=== PATIENT | male | born 1955 | race Caucasian/White ===

== ENCOUNTER 2017-08-27 16:43 | Inpatient (IN) | payer OTHER ==
[~2017-08-27] VITALS: Ht 175.3 cm; Wt 78.9 kg
[~2017-08-27 16:43] MED LIST: KEFLEX500 MG PO; NORCO 325 MG-51 TAB PO
[2017-08-27 20:02] LABS: ABSOLUTE BASOPHIL COUNT 0 /CUMM (0.0-0.2); ABSOLUTE EOSINOPHIL COUNT 0 /CUMM (0.0-0.7); ABSOLUTE GRANULOCYTE CT 16.7 /CUMM (1.4-6.5); ABSOLUTE LYMPH COUNT 0.8 /CUMM (1.2-3.4); BASOPHIL % 0.1 % (0.0-2.0); EOSINOPHIL % 0.1 % (0-5); GRANULOCYTE % 90.2 % (42.2-75.2); HEMATOCRIT 45.5 % (42-52); MEAN CORPUSCULAR HGB 30.3 PG (27.0-31.0); MEAN CORPUSCULAR HGB CONC 33.6 G/DL (33.0-37.0); MEAN CORPUSCULAR VOLUME 90.4 FL (80.0-94.0); MEAN PLATELET VOLUME 8.1 FL (7.4-10.4); PLATELET COUNT 306 /CUMM (130-400); RBC DISTRIBUTION WIDTH 12.8 % (11.5-14.5); RED BLOOD CELL CT 5.04 /CUMM (4.70-6.10)
[2017-08-27 20:11] LABS: PT 11.4 SEC (9.4-12.5); PTT 27 SEC (25-37)
--- NOTE | 2017-08-27 20:33 | ED GI/GU/ABDOMINAL COMPLAINT ---
History of Present Illness General Chief Complaint: Abdominal Pain/Flank Pain Stated Complaint: ABDOMINAL PAIN, "I TRY TO THROW UP AND I PASS OUT" Source: patient, family, old records Exam Limitations: no limitations Vital Signs & Intake/Output Vital Signs & Intake/Output Vital Signs Date Time Temp Pulse Resp B/P B/P Pulse O2 O2 Flow FiO2 Mean Ox Delivery Rate 08/31 1440 98.1 77 19 125/80 95 08/31 0800 Room Air 08/31 0744 100.5 100 20 136/74 90 08/30 2204 99.8 100 20 140/70 91 08/30 2200 99.8 100 20 140/70 08/30 2000 99.8 100 20 140/70 ED Intake and Output 08/31 0000 08/30 1200 Intake Total 1160 960 Output Total 450 Balance 1160 510 Intake, IV 600 Intake, Oral 1160 360 Output, Urine 450 Patient 78.925 kg Weight Allergies Coded Allergies: NO KNOWN ALLERGIES (02/10/12) Reconcile Medications Alprazolam 0.5 MG TABLET 1 TAB PO DAILY NEEDED ANXIETY (Reported) Amlodipine Besylate 5 MG TABLET 1 TAB PO DAILY HIGH BLOOD PRESSURE (Reported) Aspirin (Aspirin*) 81 MG TAB.CHEW 1 TAB PO DAILY HEART HEALTH (Reported) Atorvastatin Calcium 10 MG TABLET 1 TAB PO DAILY HIGH CHOLESTROL (Reported) Probenecid 500 MG TABLET GOUT (Reported) Venlafaxine HCl (Venlafaxine HCl ER) 75 MG CAP.ER.24H 1 CAP PO DAILY DEPRESSION (Reported) Zolpidem Tartrate 10 MG TABLET 1 TAB PO QPMP SLEEPINESS (Reported) Triage Note: 61 YEAR OLD MALE TO TRIAGE WITH HIS , PT STTAES THAT HE HAS BEEN HAVING DIFFUSE ABD PAIN THAT RADIATES UP INTO HIS MID CHEST FOR THE PAST 2 DAYS, EATING OK, LBN YESTERDAY. PT COMPLAINS OF NAUSEA BUT STTAES THAT HE CAN'T VOMIT, AND THAT WHEN THE PAIN GETS TO 10/10 HE FEELS LIKE HE IS GOING TO PASS OUT. Triage Nurses Notes Reviewed? yes HPI: 61M PMH HTN, HLD, depression, history of pancreatitis presenting with 2 days of worsening diffuse abdominal pain, abdominal fullness, nausea. Recently returned from an 8 day vacation to the [facility] [place] where he indulged in food and alcohol. He has been unable to eat for the past 2 days due to pain and nausea. He denies fever, chills, headache, sore throat, chest pain, cough, diarrhea, dysuria. Had an episode earlier today where he felt severe abdominal pain and rolled on the ground in the bathroom, did not strike head or lose consciousness, got up after a few minutes and recalled the entire event. Past History Travel History Traveled to [place] past 21 day No Medical History Any Pertinent Medical History? 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 No Review of Systems Review of Systems Constitutional: Reports: no symptoms. EENTM: Reports: no symptoms. Respiratory: Reports: no symptoms. Cardiovascular: Reports: no symptoms. GI: Reports: see HPI. Genitourinary: Reports: no symptoms. Musculoskeletal: Reports: no symptoms. Skin: Reports: no symptoms. Neurological/Psychological: Reports: no symptoms. Hematologic/Endocrine: Reports: no symptoms. Immunologic/Allergic: Reports: no symptoms. All Other Systems: Reviewed and Negative Physical Exam Physical Exam General Appearance: well developed/nourished, no apparent distress Head: atraumatic, normal appearance Eyes: Bilateral: normal appearance, normal inspection. Ears, Nose, Throat, Mouth: hearing grossly normal, MM dry Neck: normal inspection, supple, full range of motion Respiratory: normal breath sounds, chest non-tender, no respiratory distress Cardiovascular: regular rate/rhythm Gastrointestinal: diffusely firm, bloated, tender Back: normal inspection, normal range of motion Extremities: normal range of motion Neurologic/Psych: awake, alert, oriented x 3, normal mood/affect Skin: intact, normal color, warm/dry Core Measures ACS in differential dx? No Sepsis Present: No Sepsis Focused Exam Completed? No Progress Differential Diagnosis: AAA, AMI, appendicitis, biliary colic, bowel obstruction , colon cancer, cholecystitis, diverticulitis, epididymitis, esophageal varices, gastritis, hepatitis, hernia, hemorrhoids, ischemic bowel, inflamm bowel dis, Ellie-Hugo tear, orchitis, pancreatitis, prostatitis, peptic ulcer, PUD/GERD, perforated viscous, pyelonephritis, SBO, STD, testicular torsion, ureterolithiasis, urinary retention, urethritis, UTI/pyelo Plan of Care: Orders Procedure Date/time Status MAGNESIUM 09/01 599 Active CBC WITHOUT DIFFERENTIAL 09/01 599 Active BASIC ELECTROLYTES PLUS BUN&CR 09/01 599 Active CBC WITHOUT DIFFERENTIAL 08/31 599 Complete BASIC ELECTROLYTES PLUS BUN&CR 08/31 599 Complete VIRAL CULTURE 08/30 1415 Active OXYGEN SETUP CHG 08/30 UNK Complete INCENTIVE SPIROMETRY TRX CHG 08/30 UNK Complete OXYGEN 08/30 UNK Complete OXYGEN TRANSPORT 08/30 UNK Complete THERAPIST ORDERS 08/30 UNK Complete MISSING MEDICATION FORM 08/30 UNK Active Current Medications Sig/Javad Start time Last Medication Dose Stop Time Status Admin Polyethylene Glycol 17 GM DAILY 08/29 1000 AC 08/29 (Miralax) 1132 Trimethobenzamide HCl 200 MG 4 TIMES/DAY PRN 08/28 2345 AC 08/31 (Tigan) 0539 Albuterol Sulfate 2 PUF Q4-PRN PRN 08/28 2300 AC 08/29 (Ventolin) 0838 Senna 187 MG AT BEDTIME 08/28 2200 AC 08/29 (Senokot) 2036 Zolpidem Tartrate 10 MG 2200 08/28 2200 AC 08/30 (Ambien) 2131 Albuterol Sulfate 3 ML Q6 PRN 08/28 2115 AC (Proventil) Atorvastatin Calcium 10 MG 1700 08/28 1700 AC 08/30 (Lipitor) 1849 Amlodipine Besylate 5 MG DAILY 08/28 1000 AC 08/31 (Norvasc) 0925 Aspirin 81 MG DAILY 08/28 1000 AC 08/31 (Aspirin) 0925 Enoxaparin Sodium 40 MG DAILY 08/28 1000 AC 08/31 (Lovenox) 0926 Folic Acid 1 MG DAILY 08/28 1000 AC 08/31 (Folic Acid) 0925 Lorazepam 1 MG BID 08/28 1000 AC 08/31 (Ativan) 0925 Morphine Sulfate 2 MG Q4 HRS NEEDED PRN 08/28 1000 AC 08/31 (Morphine) 1046 Probenecid 500 MG DAILY 08/28 1000 AC 08/31 (Benemid) 09 Thiamine HCl 100 MG DAILY 08/28 1000 AC 08/31 (Vitamin B1) 09 Venlafaxine HCl 75 MG DAILY 08/28 1000 AC 08/31 (Effexor Xr) 09 Acetaminophen 500 MG Q6-PRN PRN 08/28 0015 AC 08/31 (Tylenol) 09 Oxycodone/ 1 TAB Q4P PRN 08/28 0015 AC 08/30 Acetaminophen 1911 (Percocet) Diphenhydramine HCl 25 MG Q6P PRN 08/27 2345 AC 08/31 (Benadryl) 1050 Laboratory Tests 08/31/17 0800: Anion Gap 10, Estimated GFR > 60, BUN/Creatinine Ratio 7.8, CBC w Diff NO MAN DIFF REQ, RBC 3.33 L, MCV 89.8, MCH 30.2, MCHC 33.7, RDW 12.5, MPV 8.3, Gran % 78.4 H, Lymphocytes % 6.0 L, Monocytes % 15.0 H, Eosinophils % 0.3, Basophils % 0.3, Absolute Granulocytes 3.7, Absolute Lymphocytes 0.3 L, Absolute Monocytes 0.7 H, Absolute Eosinophils 0, Absolute Basophils 0 Initial ED EKG: none Departure Departure Disposition: HOME OR SELF CARE Condition: Stable Clinical Impression Primary Impression: Acute pancreatitis Referrals: Danica SILVA,Silvio Whitten (PCP/Family) Departure Forms: Customer Survey General Discharge Information Admission Note Spoke With: Ashwini Salazar MD Documentation of Exam: Documentation of any treatments & extenuating circumstances including Concerns Regarding Discharge (functional status, medication knowledge or non-compliance, living conditions, etc.) that warrant an admission rather than observation: acute pancreatitis, WBC 18, unable to tolerate PO, will admit to general medicine for IV hydration, IV morphine, possible abdominal ultrasound
[2017-08-27 20:35] LABS: WHITE BLOOD CELL COUNT 18.5 /CUMM (4.8-10.8)
--- NOTE | 2017-08-27 22:20 | History & Physical ---
General Information and HPI Allergies/Medications Allergies: Coded Allergies: NO KNOWN ALLERGIES (02/10/12) Home Med list Alprazolam 0.5 MG TABLET 1 TAB PO DAILY NEEDED ANXIETY (Reported) Amlodipine Besylate 5 MG TABLET 1 TAB PO DAILY HIGH BLOOD PRESSURE (Reported) Aspirin (Aspirin*) 81 MG TAB.CHEW 1 TAB PO DAILY HEART HEALTH (Reported) Atorvastatin Calcium 10 MG TABLET 1 TAB PO DAILY HIGH CHOLESTROL (Reported) Probenecid 500 MG TABLET GOUT (Reported) Venlafaxine HCl (Venlafaxine HCl ER) 75 MG CAP.ER.24H 1 CAP PO DAILY DEPRESSION (Reported) Zolpidem Tartrate 10 MG TABLET 1 TAB PO QPMP SLEEPINESS (Reported) Past History Travel History Traveled to [place] past 21 day No Medical History Neurological: NONE EENT: NONE Cardiovascular: hypertension Respiratory: NONE Gastrointestinal: PANCREATITIS Hepatic: NONE Renal: NONE Musculoskeletal: R HIP REPLACEMENT Psychiatric: NONE Endocrine: GOUT Blood Disorders: NONE Cancer(s): 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
--- NOTE | 2017-08-27 23:43 | History & Physical ---
Mack SILVA,[facility] 08/27/17 2342: General Information and HPI MD Statement: I have seen and personally examined JIMY SALAZAR and documented this H&P. The patient is a 61 year old M who presented with a patient stated chief complaint of [Severe abdominal pain]. Source of Information: patient, family Exam Limitations: no limitations History of Present Illness: Mr. Salazar is 61 year old male with PMH of gout, hypertension, hyperlipidemia, anxiety, alcoholism, previous history of 2 pancreatitis attacks last one was 2012 who presented today with history of severe abdominal pain. 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 Patient tried to tolerate the pain but early yesterday morning he had pain so severe that caused him presyncopal attack, he felt dizzy and disoriented fell on the ground but didn't hit his head, denied loss of consciousness, convulsion, stool or urine incontinence. Patient denied diarrhea and in fact has constipation had one bowel movement this morning of hard stool small amount. No history of sick contact or anybody at home has similar symptoms. Patient denied eating street food or drinking tap water or eating fruits and vegetables washed with tap water. He reported drinking up to 10 glasses of whiskey daily for the last 8 days, his baseline drinking habits is 4-5 glasses per day. Denied any history of alcohol related seizure or withdrawal symptoms. He doesn't smoke or illicit drugs. No history of recent falls, confusion, memory related problems. Allergies/Medications Allergies: Coded Allergies: NO KNOWN ALLERGIES (02/10/12) Home Med list Alprazolam 0.5 MG TABLET 1 TAB PO DAILY NEEDED ANXIETY (Reported) Amlodipine Besylate 5 MG TABLET 1 TAB PO DAILY HIGH BLOOD PRESSURE (Reported) Aspirin (Aspirin*) 81 MG TAB.CHEW 1 TAB PO DAILY HEART HEALTH (Reported) Atorvastatin Calcium 10 MG TABLET 1 TAB PO DAILY HIGH CHOLESTROL (Reported) Probenecid 500 MG TABLET GOUT (Reported) Venlafaxine HCl (Venlafaxine HCl ER) 75 MG CAP.ER.24H 1 CAP PO DAILY DEPRESSION (Reported) Zolpidem Tartrate 10 MG TABLET 1 TAB PO QPMP SLEEPINESS (Reported) Past History Travel History Traveled to [place] past 21 day No Medical History Neurological: NONE EENT: NONE Cardiovascular: hypertension Respiratory: NONE Gastrointestinal: PANCREATITIS Hepatic: NONE Renal: NONE Musculoskeletal: R HIP REPLACEMENT Psychiatric: NONE Endocrine: GOUT Blood Disorders: NONE Cancer(s): 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 EENTM: Denies: blurred vision, nasal congestion. Cardiovascular: Denies: chest pain, palpitations. Respiratory: Denies: cough, short of breath. GI: Reports: abdominal pain, nausea. Denies: diarrhea, bloody stool, vomiting. Genitourinary: Reports: frequency. Denies: dysuria. Exam & Diagnostic Data Last 24 Hrs of Vital Signs/I&O Vital Signs Date Time Temp Pulse Resp B/P B/P Pulse O2 O2 Flow FiO2 Mean Ox Delivery Rate 08/28 0108 97.8 88 20 130/72 94 Room Air / 2352 98.7 90 20 134/83 95 Room Air / 2247 99.4 80 18 131/77 98 Room Air / 2138 99.2 87 20 147/74 98 Room Air / 1930 97.9 106 18 149/94 97 Room Air 08/27 1649 99.3 112 18 142/86 96 Room Air Intake & Output 08/28 0800 08/28 0000 08/27 1600 Intake Total Output Total Balance Patient 79.379 kg Weight Physical Exam General Appearance Alert, Oriented X3, Cooperative, No Acute Distress Skin No Rashes, No Breakdown, No Significant Lesion Skin Temp/Moisture Exam: Warm/Dry HEENT Atraumatic, PERRLA, EOMI, Mucous Membr. moist/pink, no parotid tenderness Neck Supple Lymphatic no cervical lymphadenopathy Cardiovascular Regular Rate, Normal S1, Normal S2, No Murmurs Lungs Clear to Auscultation, Normal Air Movement Abdomen Normal Bowel Sounds, Soft, diffuse tenderness to mild palpation Neurological Normal Speech, Strength at 5/5 X4 Ext, Normal Tone, Sensation Intact, Cranial Nerves 3-12 NL, Reflexes 2+ Extremities No Clubbing, No Cyanosis, No Edema, Normal Pulses, No Tenderness/ Swelling Last 24 Hrs of Labs/Goran: Laboratory Tests 08/27/17 2232: Lactic Acid Cancelled 08/27/17 1935: Anion Gap 15, Estimated GFR > 60, BUN/Creatinine Ratio 13.3, Glucose 116 H, Lactic Acid 1.4, Calcium 9.1, Phosphorus 3.2, Magnesium 1.8, Total Bilirubin 1.2 , AST 47, ALT 43, Alkaline Phosphatase 81, Troponin I < 0.01, Total Protein 7.3, Albumin 4.6, Globulin 2.7, Albumin/Globulin Ratio 1.7, Lipase 7026 H, PT 11.4, INR 1.09, APTT 27, CBC w Diff NO MAN DIFF REQ, RBC 5.04, MCV 90.4, MCH 30.3, MCHC 33.6, RDW 12.8, MPV 8.1, Gran % 90.2 H, Lymphocytes % 4.4 L, Monocytes % 5.2, Eosinophils % 0.1, Basophils % 0.1, Absolute Granulocytes 16.7 H, Absolute Lymphocytes 0.8 L, Absolute Monocytes 1.0 H, Absolute Eosinophils 0, Absolute Basophils 0 Assessment/Plan Assessment: Mr. Salazar is 61 year old male with PMH of gout, hypertension, hyperlipidemia, anxiety, alcoholism, previous history of 2 pancreatitis attacks last one was 2012 who presented today with history of severe abdominal pain. Problem list #Acute pancreatitis #Alcoholism #Hypertension and hyperlipidemia #Anxiety Plan -Admit to general medical floor -Vitals every shift -Lactated Ringer's running at 100 mL per hour -Nothing by mouth -Pain medication acetaminophen, Percocet and morphine 2 mg every 6 when necessary -Benadryl for itching a side effect of morphine 25 mg IV every 6 when necessary -Tigan for nausea -Urine toxicology and drugs -Limited abdominal ultrasound to rule out gallstone -Lipid panel -We'll obtain magnesium and phosphorus -CIWA score -Ativan 1 mg twice a day -Thiamine and Folic acid -We'll continue home medication atorvastatin, amlodipine, zolpidem, Effexor, aspirin -Senna for constipation -Consider obtaining CT abdomen if the pain didn't improve within 48 hours -DVT prophylaxis Lovenox -Code full -Diet nothing by mouth As Ranked By This Provider Problem List: 1. ACUTE PANCREATITIS Core Measures/Misc (04/10) Acute Coronary Syndrome ACS Diagnosis: No Congestive Heart Failure Congestive Heart Failure Diagnosis No Cerebrovascular Accident CVA/TIA Diagnosis: No VTE (View Protocol) VTE Risk Factors Age>40 No Mechanical VTE Prophylaxis d/t N/A MechProphylax Ordered No VTE Pharm Prophylaxis d/t NA PharmProphylax ordered Sepsis (View protocol) Sepsis Present: No Ashwini Salazar 08/28/17 0649: Attending MD Review Statement Attending Statement Attending MD Statement: examined this patient, discuss w/resident/PA/TEXTILE SCREEN PRINTER, agreed w/resident/PA/TEXTILE SCREEN PRINTER, reviewed EMR data (avail), reviewed images, amended to note Attending Assessment/Plan: CC: Acute abdominal pain PMH: HTN, HLD, anxiety, Cardizem, gout, history of pancreatitis Patient came to ER for severe abdominal pain , similar to previous pancreatitis episodes. He recently went to [facility], was mostly on beach and binge drinking every day. He came back 5 days back, started to notice abdominal pain yesterday. Pain was so severe that he felt like he was going to pass out but he did not actually lose consciousness. He endorses nausea and dry heaving but no vomiting. No relieving factors. Vitals: Afebrile, tachycardic, RR 18, blood pressure 142/86, saturating well on room air. On exam: A O 3, cooperative, no acute distress, neck supple, JVD normal, no lymphadenopathy, mucosa moist, no focal neurological deficit, no dependent edema , no obvious skin rashes or inflammation CVS: S1-S2, RRR. RS: Clear to auscultate bilaterally. Abdomen: Soft, epigastric tenderness, no guarding or rigidity, ND, bowel sounds present. Labs: WBC 18.5, neutrophils 90% otherwise CBC unremarkable, sodium 139, potassium 4.0, chloride 97, bicarbonate 28, BUN 12, creatinine 0.9, glucose 116, calcium 9.1, LFT unremarkable, lactate 1.4, troponin less than 0.01, lipase 7026 , INR 1.09 Assessment and plan 54-year-old male with above-mentioned past medical history presented in ER for severe abdominal pain , similar to previous pancreatitis episodes. Patient endorses binge drinking during his recent [facility] visit. Tender on palpation but no guarding or rigidity, no Jo sign, Has significantly elevated lipase. Admitted for pancreatitis. Even though alcoholism is obvious cause of pancreatitis, ruling out gallstone and hypertriglyceridemia. + Acute pancreatitis + Reactive leukocytosis + History of HTN, HLD, anxiety, Cardizem, gout, history of pancreatitis - Admit to general medicine - Continue aggressive hydration with Ringer's lactate - Check right upper quadrant ultrasound, lipid profile - Check magnesium and phosphorus, replace if low, repeat tomorrow - Adequate pain control - Check LFT in a.m. along with other labs - Replete thiamine, folic acid - DVT prophylaxis
[2017-08-28] MEDS ORDERED: ZOLPIDEM TARTRA10 M1 PO (00:28)
[2017-08-28] MEDS ORDERED: AMLODIPINE BESYL5 M1 PO (00:28)
[2017-08-28] MEDS ORDERED: ATORVASTATIN CA10 M1 PO (00:28)
[2017-08-28] MEDS ORDERED: PROBENECID500 M1 (00:29)
[2017-08-28] MEDS ORDERED: VENLAFAXINE HCL75 M1 PO (00:29)
[2017-08-28] MEDS ORDERED: ALPRAZOLAM0.5 M4 PO (00:53)
[2017-08-28] MEDS ORDERED: ASPIRIN81 M4 PO (00:53)
[2017-08-28 01:08] VITALS: BP 130/72
[2017-08-28 05:00] LABS: ABSOLUTE BASOPHIL COUNT 0 /CUMM (0.0-0.2); ABSOLUTE EOSINOPHIL COUNT 0.1 /CUMM (0.0-0.7); ABSOLUTE GRANULOCYTE CT 10.9 /CUMM (1.4-6.5); ABSOLUTE LYMPH COUNT 1.2 /CUMM (1.2-3.4); ABSOLUTE MONOCYTE COUNT 0.8 /CUMM (0.10-0.60); BASOPHIL % 0.3 % (0.0-2.0); EOSINOPHIL % 1.1 % (0-5); GRANULOCYTE % 83.6 % (42.2-75.2); MEAN CORPUSCULAR HGB 30.7 PG (27.0-31.0); MEAN CORPUSCULAR HGB CONC 33.9 G/DL (33.0-37.0); MEAN CORPUSCULAR VOLUME 90.4 FL (80.0-94.0); MEAN PLATELET VOLUME 7.6 FL (7.4-10.4); PLATELET COUNT 206 /CUMM (130-400); RBC DISTRIBUTION WIDTH 12.6 % (11.5-14.5); RED BLOOD CELL CT 3.88 /CUMM (4.70-6.10); WHITE BLOOD CELL COUNT 13.1 /CUMM (4.8-10.8)
[2017-08-28 05:06] LABS: HEMATOCRIT 35.1 % (42-52)
[2017-08-28 06:00] VITALS: BP 120/70
--- NOTE | 2017-08-28 06:50 | Admission Certification ---
Admission Certification Certification Statement - As attending physician, I certify that at the time of - admission, based on clinical presentation, severity of - symptoms, need for further diagnostic testing and - therapeutic interventions, and risk of adverse outcomes - without in-hospital treatment, in my clinical assessment, - this patient requires an acute hospital stay for a minimum - of two nights or longer. I have also considered psychsocial - factors such as support system, advanced age, financial - issues, cognitive issues, and failed out-patient treatments, - past re-admission history, safety of patient, and lack of - compliance as applicable. Specific rationale supporting this admission is: Acute pancreatitis
[2017-08-28 07:04] VITALS: BP 120/70
--- NOTE | 2017-08-28 09:34 | PN- Housestaff ---
Debbie Felix 08/28/1733: Subjective Follow-up For: pancreatitis Subjective: was seen and examined today. He was admiited overnight for pancreatitis. Currently, patient reports severe epigastric pain and mild nausea. Does not feel safe to eat pain is responding to morphine but after one or two pain comes back. no N/V/D No chest pain or SOB Last night was tacjhycardic and tachypnic today: VSS Npo; on RL drip Review of Systems Constitutional: Reports: see HPI. Objective Last 24 Hrs of Vital Signs/I&O Vital Signs Date Time Temp Pulse Resp B/P B/P Pulse O2 O2 Flow FiO2 Mean Ox Delivery Rate 08/28 0752 98.7 90 20 120/70 02/ 0704 98.7 90 20 120/70 92 / 0600 98.7 90 20 120/70 / 0108 97.8 88 20 130/72 94 Room Air / 0108 97.8 88 20 130/72 94 Room Air / 2352 98.7 90 20 134/83 95 Room Air / 2247 99.4 80 18 131/77 98 Room Air 02/ 2138 99.2 87 20 147/74 98 Room Air / 1930 97.9 106 18 149/94 97 Room Air / 1649 99.3 112 18 142/86 96 Room Air Intake & Output 08/28 1600 / 0800 08/28 0000 Intake Total 700 Output Total 250 Balance 450 Intake, IV 600 Intake, Oral 100 Number 0 Bowel Movements Output, Urine 250 Patient 175 lb 175 lb Weight Weight Reported by Patient Measurement Method Physical Exam General Appearance: Alert, Oriented X3, Mild Distress Lungs: Clear to Auscultation Abdomen: volunteery gaurding, epigastric tenderness, no RT, decreased BS Extremities: No Edema Current Medications: Current Medications Sig/Javad Start time Last Medication Dose Route Stop Time Status Admin Acetaminophen 500 MG Q6-PRN PRN 08/28 0015 AC PO Amlodipine Besylate 5 MG DAILY 08/28 1000 AC PO Aspirin 81 MG DAILY 08/28 1000 AC PO Atorvastatin Calcium 10 MG 1700 08/28 1700 AC PO Dextrose/Sodium 1,000 ML .Q10H 08/27 2345 DC 08/28 Chloride IV 08/28 0944 0009 Diphenhydramine HCl 50 MG .ST-MED ONE 08/28 0331 DC IM 08/28 0332 Diphenhydramine HCl 25 MG Q6P PRN 08/27 2345 AC 08/28 IV 0330 Diphenhydramine HCl 0 .STK-MED ONE 08/27 2139 DC .ROUTE Diphenhydramine HCl 12.5 MG ONCE ONE 08/27 2130 DC 08/27 IV 08/27 2130 214 Enoxaparin Sodium 40 MG DAILY 08/28 1000 AC 08/28 SC 0752 Folic Acid 1 MG DAILY 08/28 1000 AC PO Ketorolac 0 .STK-MED ONE 08/27 2119 DC Tromethamine .ROUTE Ketorolac 30 MG ONCE ONE 08/27 2114 DC 08/27 Tromethamine IV 08/27 Lactated Ringer's 1,000 ML Q10H 08/28 0330 AC IV Lactated Ringer's 500 ML .Q5H 08/28 0215 DC IV Lorazepam 1 MG BID 08/28 1000 AC PO Magnesium Sulfate 1 GM Q2H 08/28 0715 DC 08/28 Dextrose/Water 100 ML IV 08/28 1114 0906 Morphine Sulfate 2 MG Q4 HRS NEEDED PRN 08/28 1000 AC IV Morphine Sulfate 2 MG Q6-PRN PRN 08/27 2345 DC 08/28 IV 0330 Morphine Sulfate 0 .STK-MED ONE 08/27 2140 DC .ROUTE Morphine Sulfate 4 MG ONCE ONE 08/27 2129 DC 08/27 IV 08/271 2200 Ondansetron HCl 4 MG ONCE ONE 08/27 2114 DC 08/27 IV 08/27 Ondansetron HCl 0 .STK-MED ONE 08/27 2114 DC .ROUTE Oxycodone/ 0 .STK-MED ONE 08/28 0020 DC Acetaminophen PO Oxycodone/ 1 TAB Q4P PRN 08/28 0015 AC 08/28 Acetaminophen PO 1004 Potassium Chloride 40 MEQ ONCE ONE 08/28 0745 CAN PO 08/28 0746 Potassium Chloride 10 MEQ Q1H 08/28 0715 DC 08/28 IV 08/28 0816 1045 Potassium Phosphate 15 mMol ONE ONE 08/28 0715 DC 08/28 Sodium Chloride 250 ML IV 08/28 1119 0847 Probenecid 500 MG DAILY 08/28 1000 AC PO Senna 187 MG AT BEDTIME 08/28 2199 AC PO Sodium Chloride 1,000 ML BOLUS ONE 08/27 2114 DC 08/27 IV 08/27 2214 2120 Thiamine HCl 100 MG DAILY 08/28 1000 AC PO Trimethobenzamide HCl 200 MG 4 TIMES/DAY PRN 08/28 2345 AC IM Venlafaxine HCl 75 MG DAILY 08/28 1000 AC PO Zolpidem Tartrate 10 MG 2200 08/28 220 AC 08/28 PO 0130 Last 24 Hrs of Lab/Goran Results Last 24 Hrs of Labs/Mics: Laboratory Tests 08/28/17 0800: Urine Opiates Screen > 4000.00 H, Methadone Screen 55, Barbiturate Screen < 60, Ur Phencyclidine Scrn < 6.00, Amphetamines Screen < 100, U Benzodiazepines Scrn > 800 H, Urine Cocaine Screen < 50, Urine Cannabis Screen < 5.00 08/28/17 0600: Phosphorus Cancelled, Magnesium Cancelled, Triglycerides Cancelled, Cholesterol Cancelled, LDL Cholesterol, Calc Cancelled, HDL Cholesterol Cancelled, Cholesterol/HDL Ratio Cancelled 08/28/17 0450: Anion Gap 10, Estimated GFR > 60, BUN/Creatinine Ratio 13.3, Calcium 7.7 L, Phosphorus 2.7, Magnesium 1.7, Lactate Dehydrogenase 466, C-Reactive Prot, Quant > 9.0 H, Triglycerides 46, Cholesterol 136, LDL Cholesterol, Calc 63 L, HDL Cholesterol 64 H, Cholesterol/HDL Ratio 2, CBC w Diff NO MAN DIFF REQ, RBC 3.88 L, MCV 90.4, MCH 30.7, MCHC 33.9, RDW 12.6, MPV 7.6, Gran % 83.6 H, Lymphocytes % 9.2 L, Monocytes % 5.8, Eosinophils % 1.1, Basophils % 0.3, Absolute Granulocytes 10.9 H, Absolute Lymphocytes 1.2, Absolute Monocytes 0.8 H, Absolute Eosinophils 0.1, Absolute Basophils 0 08/27/172231: Lactic Acid Cancelled 08/27/175: Anion Gap 15, Estimated GFR > 60, BUN/Creatinine Ratio 13.3, Glucose 116 H, Lactic Acid 1.4, Calcium 9.1, Phosphorus 3.2, Magnesium 1.8, Total Bilirubin 1.2 , AST 47, ALT 43, Alkaline Phosphatase 81, Troponin I < 0.01, Total Protein 7.3, Albumin 4.6, Globulin 2.7, Albumin/Globulin Ratio 1.7, Lipase 7026 H, PT 11.4, INR 1.09, APTT 27, CBC w Diff NO MAN DIFF REQ, RBC 5.04, MCV 90.4, MCH 30.3, MCHC 33.6, RDW 12.8, MPV 8.1, Gran % 90.2 H, Lymphocytes % 4.4 L, Monocytes % 5.2, Eosinophils % 0.1, Basophils % 0.1, Absolute Granulocytes 16.7 H, Absolute Lymphocytes 0.8 L, Absolute Monocytes 1.0 H, Absolute Eosinophils 0, Absolute Basophils 0 Assessment/Plan Assessment: 61 years old man with Hx of alcohol abuse and recurrent ( x3 episode for the past 1 year) was admitted for mild-moderate pancreatitis. Labs persistent; leukocytosis imporved from 45 k to 35 k dropping Ca to 7 from 9 and elevated CRP : soapification and marker of intense inflammation, respectively. BISAP 3 List of DDx: pssoble alcoholic pancreatitis Vs type I AI pancreatitis Plan Keep npo Continue IV hydration with RL LDH, CRP, CXR, are pending for prognostication purposes IgG4 was ordered Change miorphine frequency to Q4 as needed GI consult Problem List: 1. ACUTE PANCREATITIS Pain Ratin Pain Location: epigastric Pain Goal: Pain 4 or less Pain Plan: morphin and oxycodone Tomorrow's Labs & Rationales: cbc bep Liz SILVA,Mariella 08/28/17 1353: Attending MD Review Statement Attending Statement Attending MD Statement: examined this patient, discuss w/resident/PA/CONTRACTING MANAGER, agreed w/resident/PA/CONTRACTING MANAGER, reviewed EMR data (avail), discussed with nursing, amended to note Attending Assessment/Plan: Patient seen and examined. Resting comfortably not in acute distress. Complains of some abdominal discomfort. Denies nausea. Denies vomiting. Denies difficulty breathing. He is afebrile hemodynamically stable. On examination lungs are clear to auscultation bilaterally. Abdomen is soft tenderness. There is no rebound. With diffuse there is no guarding. Recommendations: -Continue IV hydration. -Advance to clear liquid diet as tolerated. -Elective evaluation by the GI service for his recurrent pancreatitis. -Continue current pain management regimen.
--- NOTE | 2017-08-28 10:55 | RADIOLOGY REPORT ---
EXAMINATION: CR PORTABLE CHEST CLINICAL INFORMATION: Pancreatitis. COMPARISON: Chest x-ray dated 08/11/2012. TECHNIQUE: Portable AP semierect view of the chest was obtained. FINDINGS: The cardiac silhouette is within normal limits in size. There is ectasia and tortuosity of the aorta and great vessels again seen, unchanged. Low lung volumes are again noted without focal pulmonary process. No focal consolidation, effusion or pneumothorax is seen. Minimal convex right thoracolumbar curvature is seen, possibly positional. No suspicious bone findings. IMPRESSION: 1. Low lung volumes. 2. No focal pulmonary process. 3. No change in ectasia and tortuosity of the aorta and great vessels.
--- NOTE | 2017-08-28 11:00 | ULTRASOUND REPORT ---
EXAMINATION: US ABDOMEN LIMITED CLINICAL INFORMATION: Pancreatitis. Rule out gallbladder stone. COMPARISON: Ultrasound of the abdomen dated 08/10/2012. CT scan of the abdomen and pelvis dated 08/10/2012. TECHNIQUE: Real-time imaging of the right upper quadrant abdominal viscera. FINDINGS: Evaluation is limited due to difficulties with patient positioning and respiratory suspension and bowel gas. PANCREAS: The pancreas is largely obscured by overlying bowel gas. LIVER: Liver is poorly visualized, but is grossly unremarkable. The liver demonstrates normal size, contour and echogenicity. No focal lesion or intrahepatic biliary duct dilatation. GALLBLADDER: Normal. The gallbladder is physiologically distended without evidence of stones, sludge, polyps, wall thickening or pericholecystic fluid. COMMON BILE DUCT: Normal in caliber measuring 0.4 cm in diameter. RIGHT KIDNEY: Normal. No hydronephrosis. No renal calculi or focal parenchymal lesions. The kidney measures 10.1 cm in maximum dimension. FREE FLUID: None. IMPRESSION: 1. Pancreas obscured by bowel and bowel gas. 2. Liver poorly visualized, but grossly unremarkable. 3. No gallstones or other abnormality of the gallbladder appreciated. 4. No biliary dilatation.
[2017-08-28 14:44] VITALS: BP 128/74
[2017-08-28 22:31] VITALS: BP 128/70
[2017-08-29 02:30] VITALS: BP 154/82
[2017-08-29 07:03] VITALS: BP 138/78
--- NOTE | 2017-08-29 07:24 | PN- Housestaff ---
JorgeHouston 08/29/17 0724: Subjective Follow-up For: Alcoholic pancreatitis Subjective: Patient developed fever last night. Max temperature was 11.1. Blood cultures were obtained. Patient was sent for CT scan abdomen and pelvis to find the focus of infection. Patient is seen and examined this morning. He reported abdominal pain 7/10 without nausea and vomiting. His pain is under control with pain medications. He is tolerating clear liquid diet. Review of Systems Constitutional: Reports: no symptoms. EENTM: Reports: no symptoms. Cardiovascular: Reports: no symptoms. Respiratory: Reports: no symptoms. Gastrointestinal: Reports: abdominal pain. Genitourinary: Reports: no symptoms. Musculoskeletal: Reports: no symptoms. Neurological/Psychological: Reports: no symptoms. Objective Last 24 Hrs of Vital Signs/I&O Vital Signs Date Time Temp Pulse Resp B/P B/P Pulse O2 O2 Flow FiO2 Mean Ox Delivery Rate 08/29 0830 138/78 / 0805 99.0 / 0804 99.0 08/29 0730 100.8 08/29 0703 101.8 112 20 138/78 92 Room Air / 0701 101.8 / 0230 101.1 106 20 154/82 91 Room Air / 2305 Room Air / 2231 99.6 98 20 128/70 93 Room Air 02/ 1508 100.5 02/04 1444 100.5 84 20 128/74 94 Room Air Intake & Output / 1600 /05 0800 02/ 0000 Intake Total 900 1600 Output Total 150 Balance 750 1600 Intake, IV 800 800 Intake, Oral 100 800 Output, Urine 150 Physical Exam General Appearance: Alert, Oriented X3, Cooperative Skin Temp/Moisture Exam: Warm/Dry Sepsis Skin Exam (color): Normal for Ethnicity HEENT: Atraumatic, PERRLA, EOMI Neck: Supple Cardiovascular: Normal S1, Normal S2 Lungs: Clear to Auscultation Abdomen: Soft Neurological: Normal Speech, Normal Tone, Sensation Intact Extremities: No Edema Assessment/Plan Assessment: 61 YO M with PMH of gout, hypertension, hyperlipidemia, anxiety, alcoholism, previous history of 2 pancreatitis attacks last one was 2012 who presented with history of severe abdominal pain. We'll admit the patient on general medicine floor to treat for acute pancreatitis. Alcoholic pancreatitis: -Patient is tolerating clear liquids -Continue IV hydration with RL at the rate of 100 mL hourly. -His CT scan is showing left pleural effusion and mild ascites due to pancreatitis. -We will follow IgG4 results -Change morphine frequency to Q4 as needed -Continue antiemetic medication as needed. -We will follow GI recommendations. Alcohol detox: -Patient have a history of alcohol abuse. -We will continue lorazepam 1 mg twice a day. -We will continue thiamine supplement. History of hypertension hyperlipidemia: -We will continue amlodipine and atorvastatin. -We'll continue aspirin History of depression/anxiety: -Continue venlafaxine. DVT Prophylaxis: Mechanical and Lovenox CODE STATUS: Full code Problem List: 1. ACUTE PANCREATITIS Pain Ratin Pain Location: ABDOMEN Pain Goal: Pain 4 or less Pain Plan: PAIN PATHWAY Tomorrow's Labs & Rationales: CBC/BEP Carol Ivan MD 08/29/17 1331: Attending MD Review Statement Attending Statement Attending MD Statement: examined this patient, discuss w/resident/PA/DESKTOP ANALYST, agreed w/resident/PA/DESKTOP ANALYST, reviewed EMR data (avail) Attending Assessment/Plan: 61M PMH HTN, HLD, depression, history of pancreatitis presenting with 2 days of worsening diffuse abdominal pain, abdominal fullness, nausea. Recently returned from an 8 day vacation to the [place] where he indulged in food and alcohol. He has been unable to eat for the past 2 days due to pain and nausea. He denies fever, chills, headache, sore throat, chest pain, cough, diarrhea, dysuria. Today has continued abdominal pain and fullness, but he is tolerating clear liquid diet well. CT abdomen shows small left pleural effusion, significant intra-peritoneal fluid consistent with severe pancreatitis without necrosis. Plan - Continue on general medicine - IV hydration - Continue current pain regimen - Clear liquid diet, do not advance - Continue essential home medications - DVT PPx
--- NOTE | 2017-08-29 07:47 | Cons- Gastroenterology ---
General Information and HPI Consulting Request Date of Consult: 08/29/17 Requested By: Ashwini Salazar MD Reason for Consult: Etoh pancreatitis, abdominal pain. Source of Information: patient Exam Limitations: no limitations History of Present Illness: Mr. Silvestre is a 61 year old male with a history of HTN and pancretatitis who presented to on 08/27/17 with reports of worsening abdominal pain over the previous few days. He notes that he recently came back from the [place] on a vacation where he reports drinking heavily for the prior week. He states that he does drink regularly, but usually not that heavily. He also reports an episode of pancreatitis a few years ago in 2013 which also occured after a vacation. He reports having mid-epigastric abdominal pain that radiates around to his back, but not necessarily through to the back. He notes the pain is similar in quality to the pain he had in 2013. He has had some nausea, but no significant vomiting and he also denies significant burning epigastric discomfort, heartburn or dysphagia. He has been without any noticable jaundice, christie colored stool or dark urine. On admission his lipase was noted to be over 7000 and he was admitted with a diagnosis of pancreatitis and kept NPO and aggressively hydrated with lactated ringers solution. He has had an US that was negative for gallstones and a TG level checked was within normal limits. His pain has improved since admission and he is now able to tolerate liquids. He has been hemodynamically stable sind admission but has been spiking temperatures to around 101/102F. Allergies/Medications Allergies: Coded Allergies: NO KNOWN ALLERGIES (02/10/12) Home Med List: Alprazolam 0.5 MG TABLET 1 TAB PO DAILY NEEDED ANXIETY (Reported) Amlodipine Besylate 5 MG TABLET 1 TAB PO DAILY HIGH BLOOD PRESSURE (Reported) Aspirin (Aspirin*) 81 MG TAB.CHEW 1 TAB PO DAILY HEART HEALTH (Reported) Atorvastatin Calcium 10 MG TABLET 1 TAB PO DAILY HIGH CHOLESTROL (Reported) Probenecid 500 MG TABLET GOUT (Reported) Venlafaxine HCl (Venlafaxine HCl ER) 75 MG CAP.ER.24H 1 CAP PO DAILY DEPRESSION (Reported) Zolpidem Tartrate 10 MG TABLET 1 TAB PO QPMP SLEEPINESS (Reported) Current Medications: Current Medications Sig/Javad Start time Last Medication Dose Route Stop Time Status Admin Acetaminophen 1,000 MG ONCE ONE 08/29 0700 DC 02 IV 08/29 0701 0701 Acetaminophen 500 MG Q6-PRN PRN 08/28 0015 AC 08/28 PO 1508 Albuterol Sulfate 2 PUF Q4-PRN PRN 08/28 2300 AC INH Albuterol Sulfate 3 ML Q6 PRN 08/28 2115 AC INH Amlodipine Besylate 5 MG DAILY 08/28 1000 AC PO Aspirin 81 MG DAILY 04 1000 AC PO Atorvastatin Calcium 10 MG 1700 04 1700 AC 02 PO 1644 Dextrose/Sodium 1,000 ML .Q10H 08/27 2345 DC 08/28 Chloride IV 08/28 0944 0009 Diphenhydramine HCl 50 MG .STK-MED ONE 08/28 1742 DC IM 08/28 1743 Diphenhydramine HCl 50 MG .STK-MED ONE 08/28 1205 DC IM 08/28 1206 Diphenhydramine HCl 25 MG Q6P PRN 08/27 2345 AC 08/29 IV 0038 Enoxaparin Sodium 40 MG DAILY 08/28 1000 AC 08/28 SC 0752 Folic Acid 1 MG DAILY 08/28 1000 AC PO Lactated Ringer's 1,000 ML Q10H 08/28 0330 AC 08/29 IV 0039 Lorazepam 1 MG BID 08/28 1000 AC 08/28 PO 2035 Magnesium Sulfate 1 GM Q2H 08/28 0715 DC 08/28 Dextrose/Water 100 ML IV 08/28 1114 1159 Morphine Sulfate 2 MG Q4 HRS NEEDED PRN 08/28 1000 AC 08/29 IV 0723 Morphine Sulfate 2 MG Q6-PRN PRN 08/27 2345 DC 08/28 IV 0330 Oxycodone/ 1 TAB Q4P PRN 08/28 0015 AC 08/29 Acetaminophen PO 0039 Potassium Chloride 40 MEQ ONCE ONE 08/28 0745 CAN PO 08/28 0746 Potassium Chloride 10 MEQ Q1H 08/28 0715 DC 08/28 IV 08/28 0816 1045 Potassium Phosphate 15 mMol ONE ONE 08/28 0715 DC 08/28 Sodium Chloride 250 ML IV 08/28 1119 0847 Probenecid 500 MG DAILY 08/28 1000 AC PO Senna 187 MG AT BEDTIME 08/28 2200 AC 08/28 PO 2035 Thiamine HCl 100 MG DAILY 02/04 1000 AC PO Trimethobenzamide HCl 200 MG 4 TIMES/DAY PRN 08/28 2345 AC IM Venlafaxine HCl 75 MG DAILY 08/28 1000 AC PO Zolpidem Tartrate 10 MG 2200 08/28 2200 AC 08/28 PO 2229 Past History Travel History Traveled to [place] past 21 day No Medical History Blood Transfusion Hx: Yes Neurological: NONE EENT: hearing loss Cardiovascular: hypertension Respiratory: NONE Gastrointestinal: PANCREATITIS Hepatic: NONE Renal: NONE Musculoskeletal: fracture, R HIP REPLACEMENT Psychiatric: anxiety Endocrine: GOUT Blood Disorders: NONE Cancer(s): NONE 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 Home Services at Home: None Smoking Status: Never Smoked ETOH Use: denies use Illicit Drug Use: denies illicit drug use Review of Systems Review of Systems Constitutional: Denies: no symptoms. EENTM: Denies: no symptoms. Cardiovascular: Denies: no symptoms. Respiratory: Denies: no symptoms. GI: Reports: see HPI. Genitourinary: Denies: no symptoms. Musculoskeletal: Denies: no symptoms. Skin: Denies: no symptoms. Neurological/Psychological: Denies: no symptoms. Hematologic/Endocrine: Denies: no symptoms. Immunologic/Allergic: Denies: no symptoms. All Other Systems: Reviewed and Negative Exam & Diagnostic Data Vital Signs and I&O Vital Signs Date Time Temp Pulse Resp B/P B/P Pulse O2 O2 Flow FiO2 Mean Ox Delivery Rate 08/29 0730 100.8 08/29 0703 101.8 112 20 138/78 92 Room Air 08/29 0701 101.8 08/29 0230 101.1 106 20 154/82 91 Room Air 08/28 2305 Room Air 08/28 2231 99.6 98 20 128/70 93 Room Air 08/28 1508 100.5 / 1444 100.5 84 20 128/74 94 Room Air 08/28 0752 98.7 90 20 120/70 Intake & Output 08/29 1600 08/29 0400 08/28 1600 08/28 0400 08/27 1600 08/27 0400 Intake Total 1600 1450 Output Total 550 Balance 1600 900 Intake, IV 800 1350 Intake, Oral 800 100 Number 0 Bowel Movements Output, Urine 550 Patient 175 lb Weight Weight Reported by Patient Measurement Method Physical Exam General Appearance: well developed/nourished, no apparent distress, alert, awake , anxious, comfortable Head: atraumatic, normal appearance Eyes: Bilateral: normal appearance. Ears, Nose, Throat: normal pharynx, normal ENT inspection, hearing grossly normal Neck: normal inspection, supple, full range of motion Respiratory: normal breath sounds, chest non-tender, no respiratory distress Cardiovascular: regular rate/rhythm Gastrointestinal: normal bowel sounds, soft, distention, tenderness Rectal: deferred Back: normal inspection, normal range of motion Extremities: normal inspection, no edema Neurologic/Psych: no motor/sensory deficits, awake, alert, oriented x 3 Results Pertinent Lab Results: Laboratory Tests 08/28 08/28 0800 0600 Chemistry Phosphorus Cancelled Magnesium Cancelled Triglycerides Cancelled Cholesterol Cancelled LDL Cholesterol, Calc Cancelled HDL Cholesterol Cancelled Cholesterol/HDL Ratio Cancelled Toxicology Urine Opiates Screen (>2000 NG/ML) > 4000.00 H Methadone Screen (>300 NG/ML) 55 Barbiturate Screen (>200 NG/ML) < 60 Ur Phencyclidine Scrn (>25 NG/ML) < 6.00 Amphetamines Screen (>1000 NG/ML) < 100 U Benzodiazepines Scrn (>200 NG/ML) > 800 H Urine Cocaine Screen (>300 NG/ML) < 50 Urine Cannabis Screen (>50 NG/ML) < 5.00 08/28 08/27 0450 2232 Chemistry Sodium (137 - 145 mmol/L) 139 Potassium (3.5 - 5.1 mmol/L) 3.3 L Chloride (98 - 107 mmol/L) 102 Carbon Dioxide (22 - 30 mmol/L) 27 Anion Gap (5 - 16) 10 BUN (9 - 20 mg/dL) 12 Creatinine (0.7 - 1.2 mg/dL) 0.9 Estimated GFR (>60 ml/min) > 60 BUN/Creatinine Ratio (7 - 25 %) 13.3 Lactic Acid Cancelled Calcium (8.4 - 10.2 mg/dL) 7.7 L Phosphorus (2.5 - 4.5 mg/dL) 2.7 Magnesium (1.6 - 2.3 mg/dL) 1.7 Lactate Dehydrogenase (313 - 618 U/L) 466 C-Reactive Prot, Quant (<1.0 mg/dL) > 9.0 H Triglycerides (<150 mg/dL) 46 Cholesterol (< 200 MG/DL) 136 LDL Cholesterol, Calc (65 - 129 mg/dL) 63 L HDL Cholesterol (40 - 60 mg/dL) 64 H Cholesterol/HDL Ratio (0.00 - 4.88 %) 2 Hematology CBC w Diff NO MAN DIFF REQ WBC (4.8 - 10.8 /CUMM) 13.1 H RBC (4.70 - 6.10 /CUMM) 3.88 L Hgb (14.0 - 18.0 G/DL) 11.9 L Hct (42 - 52 %) 35.1 L MCV (80.0 - 94.0 FL) 90.4 MCH (27.0 - 31.0 PG) 30.7 MCHC (33.0 - 37.0 G/DL) 33.9 RDW (11.5 - 14.5 %) 12.6 Plt Count (130 - 400 /CUMM) 206 MPV (7.4 - 10.4 FL) 7.6 Gran % (42.2 - 75.2 %) 83.6 H Lymphocytes % (20.5 - 51.1 %) 9.2 L Monocytes % (1.7 - 9.3 %) 5.8 Eosinophils % (0 - 5 %) 1.1 Basophils % (0.0 - 2.0 %) 0.3 Absolute Granulocytes (1.4 - 6.5 /CUMM) 10.9 H Absolute Lymphocytes (1.2 - 3.4 /CUMM) 1.2 Absolute Monocytes (0.10 - 0.60 /CUMM) 0.8 H Absolute Eosinophils (0.0 - 0.7 /CUMM) 0.1 Absolute Basophils (0.0 - 0.2 /CUMM) 0 02/03 1935 Chemistry Sodium (137 - 145 mmol/L) 139 Potassium (3.5 - 5.1 mmol/L) 4.0 Chloride (98 - 107 mmol/L) 97 L Carbon Dioxide (22 - 30 mmol/L) 28 Anion Gap (5 - 16) 15 BUN (9 - 20 mg/dL) 12 Creatinine (0.7 - 1.2 mg/dL) 0.9 Estimated GFR (>60 ml/min) > 60 BUN/Creatinine Ratio (7 - 25 %) 13.3 Glucose (65 - 99 mg/dL) 116 H Lactic Acid (0.7 - 2.1 mmol/L) 1.4 Calcium (8.4 - 10.2 mg/dL) 9.1 Phosphorus (2.5 - 4.5 mg/dL) 3.2 Magnesium (1.6 - 2.3 mg/dL) 1.8 Total Bilirubin (0.2 - 1.3 mg/dL) 1.2 AST (17 - 59 U/L) 47 ALT (21 - 72 U/L) 43 Alkaline Phosphatase (< 127 U/L) 81 Troponin I (<0.11 ng/ml) < 0.01 Total Protein (6.3 - 8.2 g/dL) 7.3 Albumin (3.5 - 5.0 g/dL) 4.6 Globulin (1.9 - 4.2 gm/dL) 2.7 Albumin/Globulin Ratio (1.1 - 2.2 %) 1.7 Lipase (23 - 300 U/L) 7026 H Coagulation PT (9.4 - 12.5 SEC) 11.4 INR (0.90 - 1.17) 1.09 APTT (25 - 37 SEC) 27 Hematology CBC w Diff NO MAN DIFF REQ WBC (4.8 - 10.8 /CUMM) 18.5 H RBC (4.70 - 6.10 /CUMM) 5.04 Hgb (14.0 - 18.0 G/DL) 15.3 Hct (42 - 52 %) 45.5 MCV (80.0 - 94.0 FL) 90.4 MCH (27.0 - 31.0 PG) 30.3 MCHC (33.0 - 37.0 G/DL) 33.6 RDW (11.5 - 14.5 %) 12.8 Plt Count (130 - 400 /CUMM) 306 MPV (7.4 - 10.4 FL) 8.1 Gran % (42.2 - 75.2 %) 90.2 H Lymphocytes % (20.5 - 51.1 %) 4.4 L Monocytes % (1.7 - 9.3 %) 5.2 Eosinophils % (0 - 5 %) 0.1 Basophils % (0.0 - 2.0 %) 0.1 Absolute Granulocytes (1.4 - 6.5 /CUMM) 16.7 H Absolute Lymphocytes (1.2 - 3.4 /CUMM) 0.8 L Absolute Monocytes (0.10 - 0.60 /CUMM) 1.0 H Absolute Eosinophils (0.0 - 0.7 /CUMM) 0 Absolute Basophils (0.0 - 0.2 /CUMM) 0 Imaging/Other Studies: SERVICE DATE: 08/28/17- EXAM TYPE: US - US-LIMITED ABDOMEN EXAMINATION: US ABDOMEN LIMITED CLINICAL INFORMATION: Pancreatitis. Rule out gallbladder stone. COMPARISON: Ultrasound of the abdomen dated 08/10/2012. CT scan of the abdomen and pelvis dated 08/10/2012. TECHNIQUE: Real-time imaging of the right upper quadrant abdominal viscera. FINDINGS: Evaluation is limited due to difficulties with patient positioning and respiratory suspension and bowel gas. PANCREAS: The pancreas is largely obscured by overlying bowel gas. LIVER: Liver is poorly visualized, but is grossly unremarkable. The liver demonstrates normal size, contour and echogenicity. No focal lesion or intrahepatic biliary duct dilatation. GALLBLADDER: Normal. The gallbladder is physiologically distended without evidence of stones, sludge, polyps, wall thickening or pericholecystic fluid. COMMON BILE DUCT: Normal in caliber measuring 0.4 cm in diameter. RIGHT KIDNEY: Normal. No hydronephrosis. No renal calculi or focal parenchymal lesions. The kidney measures 10.1 cm in maximum dimension. FREE FLUID: None. IMPRESSION: 1. Pancreas obscured by bowel and bowel gas. 2. Liver poorly visualized, but grossly unremarkable. 3. No gallstones or other abnormality of the gallbladder appreciated. 4. No biliary dilatation. Assessment/Plan Assessment/Recommendations: Assessment: Mr. Silvestre is a 61 year old male admitted with pancreatitis which based on his history, negaitve US and normal TG level is most likely secondary to etoh. That being said, one generally needs to be a 'professional' drinker to develop etoh pancreatitis and at least on his history he doesn't admit to heavy etoh reguarly so he is either not forthcoming with exactly how much he drinks or there is another etiology of his pancreatitis with the former being the more likely scenario. His LFTs are normal and he didn't have any gallstones which argues against a biliary source of his pancreatitis, although a false negative US is possible so it may be reasonable to repeat it in the future. Futher potential etiologies of pancreatitis could be an occult cystic neoplasm, autoimmune or hereditary pancreatitis, medications although he isn't on anything that typically causes pancreatitis and there don't appear to be any recent changes or perhaps he keeps getting bit by scorpions [place] He is clinically improved, but considering he is still having some pain and spiked a temp to 101.8 last night would recommend pursuing further imaging to assess for a fluid collection although it is a bit too early in his course for this to develop and I suspect the fevers are just reactive to his pancreatitis. Recommendations: 1. Check a ct scan of the abdomen with IV contrast and pancreatic mass protocol. 2. Continue with clear liquids for now and maintenance IVF, but as he still has significant pain would not advance beyond clears at this time. 3. Analgesia as needed with IV narcotics if necessary 4. Monitor for signs of etoh withdrawal and consideration should be given for a social service consult for potential etoh abuse if pt is agreeable. 5. Follow up cultures and observe off of antibiotics. I will continue to follow this patient and make further recommendations based on her clinical course and results of the ct scan of his pancreas. Problem List: 1. ACUTE PANCREATITIS Copies To: Danica SILVA,Silvio Consult Acknowledgment - Thank you for your consult request.
--- NOTE | 2017-08-29 09:12 | CT SCAN REPORT ---
EXAMINATION: CT ABDOMEN AND PELVIS WITH CONTRAST CLINICAL INFORMATION: Pancreatitis COMPARISON: CT 08/09/2012. Abdominal ultrasound 08/28/2017 TECHNIQUE: Multidetector volumetric imaging was performed of the abdomen and pelvis following IV administration of 95 mL of Optiray 320 intravenous contrast. Sagittal and coronal reformatted images were obtained on the technologist's workstation. DLP: 433 mGy-cm FINDINGS: LUNG BASES: Small left pleural effusion. Mild atelectasis in the lingula and left lower lobe. Normal heart size. LIVER, GALLBLADDER, AND BILIARY TREE: The liver is normal in size, shape, and attenuation. No focal hepatic lesion or biliary ductal dilatation is present. The gallbladder is unremarkable with no evidence of radiopaque gallstones, gallbladder wall thickening, or obvious pericholecystic inflammatory changes. PANCREAS: The pancreas is edematous. There is fluid adjacent the body and tail of the pancreas extending into the left anterior pararenal space. The pancreas enhances normally. No pancreatic necrosis seen. The pancreatic duct is not dilated. No pancreatic mass. SPLEEN: There is a punctate hyperdensity in the spleen, possibly a tiny granuloma. No focal splenic lesions seen. ADRENAL GLANDS: Unremarkable. KIDNEYS AND URETERS: The kidneys are normal in size, shape, and attenuation. No hydronephrosis, hydroureter, or calculi seen. No perinephric stranding. BLADDER: Unremarkable. GASTROINTESTINAL TRACT: Stomach is collapsed. The small bowel is nondilated. The cecum is redundant and distended with gas. A component of an ileus may be present. No colonic wall thickening or pericolonic inflammatory changes to suggest colitis or diverticulitis. ABDOMINAL WALL: There are foci of gas within the subcutaneous fat of the right lower quadrant presumably from subcutaneous injections. There is diastases of the rectus abdominis but no hernia seen. Tiny fat-containing umbilical hernia. LYMPH NODES: Normal. VASCULAR: Normal caliber abdominal aorta. The portal vein enhances normally. The superior mesenteric vein and splenic vein enhance normally. PELVIC VISCERA: The prostate and seminal vesicles are unremarkable. There is a small volume of free fluid in the pelvis. This measures slightly greater than simple fluid density. OSSEOUS STRUCTURES: Grade 1 anterolisthesis of L5 on S1. Multilevel degenerative changes of the thoracolumbar spine. Chronic bilateral L5 pars defects. IMPRESSION: There are findings of acute interstitial pancreatitis. There is fluid adjacent the body and tail of the pancreas but no well-circumscribed discrete fluid collection. No pancreatic necrosis. There is a small volume of free fluid in the pelvis which measures greater than simple fluid density suggesting it is complicated with proteinaceous material. Normal left pleural effusion. The cecum is redundant and distended with gas, up to 7 cm in diameter. There may be a component of an underlying focal ileus.
[2017-08-29 10:28] LABS: ABSOLUTE BASOPHIL COUNT 0 /CUMM (0.0-0.2); ABSOLUTE EOSINOPHIL COUNT 0.1 /CUMM (0.0-0.7); ABSOLUTE LYMPH COUNT 0.9 /CUMM (1.2-3.4); BASOPHIL % 0 % (0.0-2.0); EOSINOPHIL % 0.8 % (0-5); HEMATOCRIT 33.6 % (42-52); MEAN CORPUSCULAR HGB 30.9 PG (27.0-31.0); MEAN CORPUSCULAR VOLUME 90.9 FL (80.0-94.0); MEAN PLATELET VOLUME 8.6 FL (7.4-10.4); PLATELET COUNT 194 /CUMM (130-400); RBC DISTRIBUTION WIDTH 13.2 % (11.5-14.5); WHITE BLOOD CELL COUNT 11.9 /CUMM (4.8-10.8)
[2017-08-29 11:47] LABS: GRANULOCYTE % 83.8 % (42.2-75.2)
[2017-08-29 12:00] VITALS: BP 130/72
[2017-08-29 15:00] VITALS: BP 144/70
[2017-08-29 22:50] VITALS: BP 160/70
[2017-08-30] VITALS (10 sets, daily range): BP systolic 120–160; BP diastolic 70–80
--- NOTE | 2017-08-30 03:08 | RADIOLOGY REPORT ---
EXAMINATION: XR PORTABLE CHEST CLINICAL INFORMATION: Pancreatitis. COMPARISON: Chest x-ray August 28, 2017 TECHNIQUE: Portable frontal view of the chest was obtained. 2:39 AM FINDINGS: Linear atelectasis left midlung. No infiltrate. No pulmonary vascular congestion or pleural effusion. Cardiac and mediastinal contours are normal. IMPRESSION: Linear atelectasis left midlung. Chest is otherwise unremarkable.
--- NOTE | 2017-08-30 07:26 | PN- Housestaff ---
[facility] 0726: Subjective Follow-up For: Recurrent pancreatitis Subjective: Patient developed fever overnight. MAXIMUM TEMPERATURE 101.7. Patient was also desaturating to 87% last night on room air. Patient was given 1 L oxygen to maintain saturation above 92%. He was also having wheezing. Seen and examined this morning. He denied any chest pain, short of breath, nausea, vomiting, lightheadedness and dysuria. Patient reported having dry cough and abdominal pain 8/10. Patient also reported having abdominal distention although he had bowel movement yesterday. Review of Systems Constitutional: Reports: no symptoms. EENTM: Reports: no symptoms. Cardiovascular: Reports: no symptoms. Respiratory: Reports: cough, wheezing. Gastrointestinal: Reports: abdominal pain. Genitourinary: Reports: no symptoms. Musculoskeletal: Reports: no symptoms. Neurological/Psychological: Reports: no symptoms. Objective Last 24 Hrs of Vital Signs/I&O Vital Signs Date Time Temp Pulse Resp B/P B/P Pulse O2 O2 Flow FiO2 Mean Ox Delivery Rate 08/30 0700 100.3 / 0641 100.3 08/30 0608 101.7 112 24 146/80 96 Nasal 2.0L Cannula / 0600 101.7 112 22 144/80 02/06 0537 101.7 / 0400 99.7 114 22 134/70 02/06 0248 114 93 Nasal 2.0L Cannula / 0200 99.7 123 22 134/70 02/06 0200 99.7 123 22 134/70 90 Room Air 02/06 0043 110 02/06 0000 99.9 120 20 160/70 02/05 2250 99.9 120 20 160/70 95 Room Air 02/05 1500 98.1 109 20 144/70 93 02/05 1200 98.3 89 18 130/72 96 Room Air 02/05 0830 138/78 Intake & Output / 1600 02/06 0800 02/06 0000 Intake Total 960 950 Output Total 450 600 Balance 510 350 Intake, IV 600 Intake, Oral 360 950 Number 1 Bowel Movements Output, Urine 450 600 Physical Exam General Appearance: Alert, Oriented X3, Cooperative Skin Temp/Moisture Exam: Warm/Dry Sepsis Skin Exam (color): Normal for Ethnicity HEENT: Atraumatic, PERRLA, EOMI Neck: Supple Cardiovascular: Normal S1, Normal S2 Lungs: right lung wheezing and left lung decreased breath sounds at base. Abdomen: distended Neurological: Normal Speech, Strength at 5/5 X4 Ext, Normal Tone, Sensation Intact Extremities: No Edema Assessment/Plan Assessment: 61 YO M with PMH of gout, hypertension, hyperlipidemia, anxiety, alcoholism, previous history of 2 pancreatitis attacks last one was 2012 who presented with history of severe abdominal pain. patient is being followed on general medicine floor for treat of acute pancreatitis. Recurrent alcoholic pancreatitis: -Patient is tolerating clear liquids -Continue IV hydration with RL at the rate of 100 mL hourly.stoped last night -We will follow IgG4 results -Change morphine frequency to Q4 as needed -Continue antiemetic medication as needed. -CT scan abdomen with pancreatic mass protocol today. -We will follow GI recommendations. Alcohol detox: -Patient have a history of alcohol abuse. -Continue lorazepam 1 mg twice a day. -Continue thiamine supplement. History of hypertension hyperlipidemia: -Continue amlodipine and atorvastatin. -Continue aspirin History of depression/anxiety: -Continue venlafaxine. DVT Prophylaxis: Mechanical and Lovenox CODE STATUS: Full code Problem List: 1. Acute pancreatitis Pain Ratin Pain Location: abdomen Pain Goal: Pain 4 or less Pain Plan: pain pathway Tomorrow's Labs & Rationales: cbc/bep Carol Ivan MD 08/30/17 1209: Attending MD Review Statement Attending Statement Attending MD Statement: examined this patient, discuss w/resident/PA/FLORIST, agreed w/resident/PA/FLORIST, reviewed EMR data (avail) Attending Assessment/Plan: 61M PMH HTN, HLD, depression, history of pancreatitis presenting with 2 days of worsening diffuse abdominal pain, abdominal fullness, nausea. Recently returned from an 8 day vacation to the [facility] where he indulged in food and alcohol. He has been unable to eat for the past 2 days due to pain and nausea. He denies fever, chills, headache, sore throat, chest pain, cough, diarrhea, dysuria. Today has continued abdominal pain and fullness, but he is tolerating clear liquid diet well. CT abdomen shows small left pleural effusion, significant intra-peritoneal fluid consistent with severe pancreatitis without necrosis. Plan - Continue on general medicine - Repeat CT pancreatic protocol - IV hydration - Follow GI recommendations - Continue current pain regimen - Clear liquid diet, do not advance - Continue essential home medications - DVT PPx
[2017-08-30 08:48] LABS: ABSOLUTE BASOPHIL COUNT 0 /CUMM (0.0-0.2); ABSOLUTE EOSINOPHIL COUNT 0.1 /CUMM (0.0-0.7); ABSOLUTE GRANULOCYTE CT 8.2 /CUMM (1.4-6.5); ABSOLUTE LYMPH COUNT 0.4 /CUMM (1.2-3.4); ABSOLUTE MONOCYTE COUNT 0.7 /CUMM (0.10-0.60); BASOPHIL % 0.1 % (0.0-2.0); EOSINOPHIL % 0.8 % (0-5); HEMATOCRIT 32.3 % (42-52); MEAN CORPUSCULAR HGB 30.9 PG (27.0-31.0); MEAN CORPUSCULAR VOLUME 90.9 FL (80.0-94.0); MEAN PLATELET VOLUME 7.7 FL (7.4-10.4); PLATELET COUNT 223 /CUMM (130-400); RBC DISTRIBUTION WIDTH 12.8 % (11.5-14.5); RED BLOOD CELL CT 3.56 /CUMM (4.70-6.10); WHITE BLOOD CELL COUNT 9.4 /CUMM (4.8-10.8)
[2017-08-30 09:30] LABS: GRANULOCYTE % 86.7 % (42.2-75.2)
--- NOTE | 2017-08-30 13:44 | CT SCAN REPORT ---
EXAMINATION: CT ABDOMEN WITHOUT AND WITH CONTRAST CLINICAL INFORMATION: Pancreatitis. Evaluate for pancreatic tumor. COMPARISON: CT images of the abdomen pelvis from 08/29/2017. TECHNIQUE: Initially, noncontrast images of the abdomen were acquired. Then, arterial and venous phase images of the abdomen were obtained following intravenous administration of 95 mL of Optiray 320 nonionic contrast material. The data set was reformatted in the coronal and sagittal planes and reviewed on an independent workstation. DLP: 565 mGy-cm FINDINGS: LUNG BASES: Persistent trace right pleural effusion and small left pleural effusion, similar compared to 08/29/2017. Mild subsegmental atelectasis within the visualized inferior lingula. No pericardial effusion. LIVER, GALLBLADDER, AND BILIARY TREE: The liver is normal in size, shape, and attenuation. No focal hepatic lesion or biliary ductal dilatation. The gallbladder is unremarkable with no evidence of radiopaque gallstones, gallbladder wall thickening, or pericholecystic inflammatory changes. PANCREAS: Again noted is edema and fat stranding around the body and tail the pancreas consistent with acute interstitial pancreatitis. No evidence of cystic or solid pancreatic lesion or pancreatic ductal dilatation. No evidence of pancreatic necrosis. No interval development of an organized, rim-enhancing fluid collection. Small amount of fluid tracks along the anterior renal fascia toward the pelvis, not significantly changed compared to 08/29/2017. SPLEEN: No acute findings. No evidence of splenic vein thrombosis. ADRENAL GLANDS: Unremarkable. KIDNEYS AND URETERS: Kidneys are normal in size. No nephrolithiasis, hydronephrosis or renal mass. There is edema in the left perinephric space. The ureters are unremarkable. GASTROINTESTINAL TRACT: Again noted is gaseous distention of the cecum. The cecum currently measures 6 cm AP compared to 8 cm AP diameter on 08/29/2017. No pneumoperitoneum. ABDOMINAL WALL: Unremarkable. LYMPH NODES: Normal. VASCULAR: Abdominal aorta is normal in caliber and its major branches are widely patent. There is a left and right-sided inferior vena cava. OSSEOUS STRUCTURES: Again noted is the L5 spondylolysis with grade 1 anterolisthesis of L5 on S1. No suspicious osseous lesions. IMPRESSION: 1. No evidence of pancreatic neoplasm. 2. Acute interstitial pancreatitis associated with peripancreatic fluid that extends along the anterior renal fascia toward the pelvis, unchanged compared to 08/29/2017. 3. Persistent small left pleural effusion and trace right pleural effusion.
--- NOTE | 2017-08-31 07:26 | PN- Housestaff ---
JorgeHighland 08/31/17 0726: Subjective Follow-up For: Recurrent pancreatitis Alcohol abuse Subjective: No overnight events. Patient's max temperature remained 99.8 last night and this morning it's 100.5. Seen and examined this morning. Patient denied any chest pain, short of breath, nausea, vomiting, lightheadedness and dysuria. Patient reported dry cough that comes on exertion. Patient also reported abdominal pain 7/10. He also reported that he is feeling bloated although he had bowel movement last a. Patient flu test is negative. Review of Systems Constitutional: Reports: no symptoms. EENTM: Reports: no symptoms. Cardiovascular: Reports: no symptoms. Respiratory: Reports: cough. Gastrointestinal: Reports: abdominal pain, bloating. Genitourinary: Reports: no symptoms. Musculoskeletal: Reports: no symptoms. Neurological/Psychological: Reports: no symptoms. Objective Last 24 Hrs of Vital Signs/I&O Vital Signs Date Time Temp Pulse Resp B/P B/P Pulse O2 O2 Flow FiO2 Mean Ox Delivery Rate 08/31 0744 100.5 100 20 136/74 90 08/30 2204 99.8 100 20 140/70 91 08/30 2200 99.8 100 20 140/70 / 2000 99.8 100 20 140/70 08/30 1444 99.6 08/30 1425 98.2 88 20 120/76 97 / 1227 101.4 / 1200 101.4 Intake & Output 08/31 1600 08/31 0800 08/31 0000 Intake Total 360 Output Total 400 Balance -400 360 Intake, Oral 360 Output, Urine 400 Physical Exam General Appearance: Alert, Oriented X3, Cooperative Skin Temp/Moisture Exam: Warm/Dry Sepsis Skin Exam (color): Normal for Ethnicity HEENT: Atraumatic, PERRLA, EOMI Neck: Supple Cardiovascular: Normal S1, Normal S2 Lungs: expiratory wheez on left side. Abdomen: distended Neurological: Normal Speech, Strength at 5/5 X4 Ext, Normal Tone, Sensation Intact Extremities: No Edema Assessment/Plan Assessment: 61 YO M with PMH of gout, hypertension, hyperlipidemia, anxiety, alcoholism, previous history of 2 pancreatitis attacks last one was 2012 who presented with history of severe abdominal pain. patient is being followed on general medicine floor for treat of acute pancreatitis. Recurrent alcoholic pancreatitis: -Patient is tolerating clear liquids. -We will follow IgG4 results -Continue morphine frequency to Q4 as needed -Continue antiemetic medication as needed. -CT scan abdomen is negative for pancreatic mass. -We will follow GI recommendations. Alcohol detox: -Patient have a history of alcohol abuse. -Continue lorazepam 1 mg twice a day. -Continue thiamine supplement. History of hypertension hyperlipidemia: -Continue amlodipine and atorvastatin. -Continue aspirin History of depression/anxiety: -Continue venlafaxine. DVT Prophylaxis: Mechanical and Lovenox CODE STATUS: Full code Problem List: 1. Acute pancreatitis 2. Alcohol abuse Pain Ratin Pain Location: abdomen Pain Goal: Remain pain free Pain Plan: pain pathway Tomorrow's Labs & Rationales: cbc/bep Carol Ivan MD 08/31/17 1344: Attending MD Review Statement Attending Statement Attending MD Statement: examined this patient, discuss w/resident/PA/MANAGER CASINO, agreed w/resident/PA/MANAGER CASINO, reviewed EMR data (avail) Attending Assessment/Plan: 61M PMH HTN, HLD, depression, history of pancreatitis presenting with 2 days of worsening diffuse abdominal pain, abdominal fullness, nausea. Recently returned from an 8 day vacation to the [facility] where he indulged in food and alcohol. He has been unable to eat for the past 2 days due to pain and nausea. He denies fever, chills, headache, sore throat, chest pain, cough, diarrhea, dysuria. Today has continued abdominal pain and fullness, but he is tolerating clear liquid diet well. CT abdomen shows small left pleural effusion, significant intra-peritoneal fluid consistent with severe pancreatitis without necrosis. Plan - Continue on general medicine - IV hydration - Follow GI recommendations - Continue current pain regimen - Clear liquid diet, do not advance - Continue essential home medications - DVT PPx - Will advance diet tomorrow if condition improves
[2017-08-31 07:44] VITALS: BP 136/74
[2017-08-31 09:10] LABS: ABSOLUTE BASOPHIL COUNT 0 /CUMM (0.0-0.2); ABSOLUTE EOSINOPHIL COUNT 0 /CUMM (0.0-0.7); ABSOLUTE GRANULOCYTE CT 3.7 /CUMM (1.4-6.5); ABSOLUTE LYMPH COUNT 0.3 /CUMM (1.2-3.4); ABSOLUTE MONOCYTE COUNT 0.7 /CUMM (0.10-0.60); BASOPHIL % 0.3 % (0.0-2.0); EOSINOPHIL % 0.3 % (0-5); GRANULOCYTE % 78.4 % (42.2-75.2); HEMATOCRIT 29.9 % (42-52); MEAN CORPUSCULAR HGB 30.2 PG (27.0-31.0); MEAN CORPUSCULAR HGB CONC 33.7 G/DL (33.0-37.0); MEAN CORPUSCULAR VOLUME 89.8 FL (80.0-94.0); MEAN PLATELET VOLUME 8.3 FL (7.4-10.4); PLATELET COUNT 214 /CUMM (130-400); RBC DISTRIBUTION WIDTH 12.5 % (11.5-14.5); RED BLOOD CELL CT 3.33 /CUMM (4.70-6.10); WHITE BLOOD CELL COUNT 4.8 /CUMM (4.8-10.8)
--- NOTE | 2017-08-31 13:18 | PN- Gastroenterology ---
Assessment/Plan Assessment/Recommendations: Assessment: Mr. Silvestre is a 61 year old male admitted with pancreatitis which based on his history, negaitve US and normal TG level is most likely secondary to etoh. He continues to have some discomfort and low grade fevers, but his fever curve is improving (Tmax only 100.5 over past 24 hours) and his ct scan was negative for necrosis, or any significant fluid collections and I feel the low grade fevers are reactive to the pancreatitis. Recommendations: 1. Advance diet as tolerated. 2. Analgesia as needed with IV narcotics if necessary 3. Monitor for signs of etoh withdrawal and consideration should be given for a social service consult for potential etoh abuse if pt is agreeable. 4. Follow up cultures and observe off of antibiotics. I will continue to follow this patient and make further recommendations based on her clinical course and results of the ct scan of his pancreas. Problem List: 1. Fever 2. ACUTE PANCREATITIS Subjective Subjective: he has been advanced to clears which he is tolearting. Pain is improved, but he is still having low grade temps. No vomiting or diarrhea. Objective Vital Signs and I&Os Vital Signs Date Time Temp Pulse Resp B/P B/P Pulse O2 O2 Flow FiO2 Mean Ox Delivery Rate 08/31 0800 Room Air 08/31 0744 100.5 100 20 136/74 90 08/30 2204 99.8 100 20 140/70 91 08/30 2200 99.8 100 20 140/70 08/30 2000 99.8 100 20 140/70 08/30 1444 99.6 08/30 1425 98.2 88 20 120/76 97 Intake & Output 08/31 0400 08/30 1600 08/30 0400 08/29 040 Intake Total 360 6391 646 2580 1600 Output Total 400 262 187 0921 Balance -045 893 1552 350 -910 1600 Intake, IV 600 800 800 Intake, Oral 360 1160 950 340 800 Number 1 Bowel Movements Output, Urine 400 439 062 5369 Patient 174 lb Weight Physical Exam General Appearance: well developed/nourished, no apparent distress, alert, comfortable Head: atraumatic, normal appearance Ears, Nose, Throat: normal pharynx, normal ENT inspection Neck: normal inspection, supple, full range of motion Respiratory: normal breath sounds, chest non-tender, no respiratory distress Abdomen: normal bowel sounds, soft, tenderness Back: normal inspection, normal range of motion Extremities: normal inspection, no edema Current Medications: Current Medications Sig/Javad Start time Last Medication Dose Route Stop Time Status Admin Acetaminophen 500 MG Q6-PRN PRN 08/28 0015 AC 08/31 PO 0926 Albuterol Sulfate 2 PUF Q4-PRN PRN 08/28 2300 AC 08/29 INH 0838 Albuterol Sulfate 3 ML Q6 PRN 08/28 2115 AC INH Amlodipine Besylate 5 MG DAILY 08/28 1000 AC 08/31 PO 0925 Aspirin 81 MG DAILY 08/28 1000 AC 08/31 PO 0925 Atorvastatin Calcium 10 MG 1700 08/28 1700 AC 08/30 PO 1849 Diphenhydramine HCl 50 MG .STK-MED ONE 08/30 2353 DC IM 08/30 2354 Diphenhydramine HCl 25 MG Q6P PRN 08/27 2345 AC 08/31 IV 1050 Enoxaparin Sodium 40 MG DAILY 08/28 1000 AC 08/31 SC 0926 Folic Acid 1 MG DAILY 08/28 1000 AC 08/31 PO 0925 Lorazepam 1 MG BID 08/28 1000 AC 08/31 PO 0925 Morphine Sulfate 2 MG Q4 HRS NEEDED PRN 08/28 1000 AC 08/31 IV 1046 Oxycodone/ 1 TAB Q4P PRN 08/28 0015 AC 08/30 Acetaminophen PO 1911 Polyethylene Glycol 17 GM DAILY 08/29 1000 AC 08/29 PO 1132 Probenecid 500 MG DAILY 08/28 1000 AC 08/31 PO 0925 Senna 187 MG AT BEDTIME 08/28 2200 AC 08/29 PO 2036 Thiamine HCl 100 MG DAILY 08/28 1000 AC 08/31 PO 0925 Trimethobenzamide HCl 200 MG .STK-MED ONE 08/30 190 DC IM 08/30 1909 Trimethobenzamide HCl 200 MG 4 TIMES/DAY PRN 08/28 2345 AC 08/31 IM 0539 Venlafaxine HCl 75 MG DAILY 08/28 1000 AC 08/31 PO 0925 Zolpidem Tartrate 10 MG 2200 08/28 2200 AC 08/30 PO 2131 Results Pertinent Lab Results: Laboratory Tests 08/31 08/30 02/ 0800 1415 0825 Chemistry Sodium (137 - 145 mmol/L) 137 143 Potassium (3.5 - 5.1 mmol/L) 3.8 3.8 Chloride (98 - 107 mmol/L) 98 102 Carbon Dioxide (22 - 30 mmol/L) 28 29 Anion Gap (5 - 16) 10 12 BUN (9 - 20 mg/dL) 7 L 5 L Creatinine (0.7 - 1.2 mg/dL) 0.9 0.9 Estimated GFR (>60 ml/min) > 60 > 60 BUN/Creatinine Ratio (7 - 25 %) 7.8 5.6 L Hematology CBC w Diff NO MAN DIFF REQ WBC (4.8 - 10.8 /CUMM) 4.8 RBC (4.70 - 6.10 /CUMM) 3.33 L Hgb (14.0 - 18.0 G/DL) 10.1 L Hct (42 - 52 %) 29.9 L MCV (80.0 - 94.0 FL) 89.8 MCH (27.0 - 31.0 PG) 30.2 MCHC (33.0 - 37.0 G/DL) 33.7 RDW (11.5 - 14.5 %) 12.5 Plt Count (130 - 400 /CUMM) 214 MPV (7.4 - 10.4 FL) 8.3 Gran % (42.2 - 75.2 %) 78.4 H Lymphocytes % (20.5 - 51.1 %) 6.0 L Monocytes % (1.7 - 9.3 %) 15.0 H Eosinophils % (0 - 5 %) 0.3 Basophils % (0.0 - 2.0 %) 0.3 Absolute Granulocytes (1.4 - 6.5 /CUMM) 3.7 Absolute Lymphocytes (1.2 - 3.4 /CUMM) 0.3 L Absolute Monocytes (0.10 - 0.60 /CUMM) 0.7 H Absolute Eosinophils (0.0 - 0.7 /CUMM) 0 Absolute Basophils (0.0 - 0.2 /CUMM) 0 Serology Virus Culture Pending 08/30 08/29 0720 K Hematology CBC w Diff NO MAN DIFF REQ WBC (4.8 - 10.8 /CUMM) 9.4 RBC (4.70 - 6.10 /CUMM) 3.56 L Hgb (14.0 - 18.0 G/DL) 11.0 L Hct (42 - 52 %) 32.3 L MCV (80.0 - 94.0 FL) 90.9 MCH (27.0 - 31.0 PG) 30.9 MCHC (33.0 - 37.0 G/DL) 34.0 RDW (11.5 - 14.5 %) 12.8 Plt Count (130 - 400 /CUMM) 223 MPV (7.4 - 10.4 FL) 7.7 Gran % (42.2 - 75.2 %) 86.7 H Lymphocytes % (20.5 - 51.1 %) 4.5 L Monocytes % (1.7 - 9.3 %) 7.9 Eosinophils % (0 - 5 %) 0.8 Basophils % (0.0 - 2.0 %) 0.1 Absolute Granulocytes (1.4 - 6.5 /CUMM) 8.2 H Absolute Lymphocytes (1.2 - 3.4 /CUMM) 0.4 L Absolute Monocytes (0.10 - 0.60 /CUMM) 0.7 H Absolute Eosinophils (0.0 - 0.7 /CUMM) 0.1 Absolute Basophils (0.0 - 0.2 /CUMM) 0 Miscellaneous Ref Lab Test Result Pending 08/29 729 Chemistry Sodium (137 - 145 mmol/L) 138 Potassium (3.5 - 5.1 mmol/L) 3.6 Chloride (98 - 107 mmol/L) 101 Carbon Dioxide (22 - 30 mmol/L) 24 Anion Gap (5 - 16) 12 BUN (9 - 20 mg/dL) 8 L Creatinine (0.7 - 1.2 mg/dL) 0.9 Estimated GFR (>60 ml/min) > 60 BUN/Creatinine Ratio (7 - 25 %) 8.9 Calcium (8.4 - 10.2 mg/dL) 7.9 L Albumin (3.5 - 5.0 g/dL) 2.9 L Hematology CBC w Diff NO MAN DIFF REQ WBC (4.8 - 10.8 /CUMM) 11.9 H RBC (4.70 - 6.10 /CUMM) 3.70 L Hgb (14.0 - 18.0 G/DL) 11.4 L Hct (42 - 52 %) 33.6 L MCV (80.0 - 94.0 FL) 90.9 MCH (27.0 - 31.0 PG) 30.9 MCHC (33.0 - 37.0 G/DL) 34.0 RDW (11.5 - 14.5 %) 13.2 Plt Count (130 - 400 /CUMM) 194 MPV (7.4 - 10.4 FL) 8.6 Gran % (42.2 - 75.2 %) 83.8 H Lymphocytes % (20.5 - 51.1 %) 7.4 L Monocytes % (1.7 - 9.3 %) 8.0 Eosinophils % (0 - 5 %) 0.8 Basophils % (0.0 - 2.0 %) 0 Absolute Granulocytes (1.4 - 6.5 /CUMM) 10.0 H Absolute Lymphocytes (1.2 - 3.4 /CUMM) 0.9 L Absolute Monocytes (0.10 - 0.60 /CUMM) 1.0 H Absolute Eosinophils (0.0 - 0.7 /CUMM) 0.1 Absolute Basophils (0.0 - 0.2 /CUMM) 0 Imaging/Other Studies: SERVICE DATE: 08/30/17- EXAM TYPE: CAT - CT ABD W&WO IV CONTRAST EXAMINATION: CT ABDOMEN WITHOUT AND WITH CONTRAST CLINICAL INFORMATION: Pancreatitis. Evaluate for pancreatic tumor. COMPARISON: CT images of the abdomen pelvis from 08/29/2017. TECHNIQUE: Initially, noncontrast images of the abdomen were acquired. Then, arterial and venous phase images of the abdomen were obtained following intravenous administration of 95 mL of Optiray 320 nonionic contrast material. The data set was reformatted in the coronal and sagittal planes and reviewed on an independent workstation. DLP: 565 mGy-cm FINDINGS: LUNG BASES: Persistent trace right pleural effusion and small left pleural effusion, similar compared to 08/29/2017. Mild subsegmental atelectasis within the visualized inferior lingula. No pericardial effusion. LIVER, GALLBLADDER, AND BILIARY TREE: The liver is normal in size, shape, and attenuation. No focal hepatic lesion or biliary ductal dilatation. The gallbladder is unremarkable with no evidence of radiopaque gallstones, gallbladder wall thickening, or pericholecystic inflammatory changes. PANCREAS: Again noted is edema and fat stranding around the body and tail the pancreas consistent with acute interstitial pancreatitis. No evidence of cystic or solid pancreatic lesion or pancreatic ductal dilatation. No evidence of pancreatic necrosis. No interval development of an organized, rim-enhancing fluid collection. Small amount of fluid tracks along the anterior renal fascia toward the pelvis, not significantly changed compared to 08/29/2017. SPLEEN: No acute findings. No evidence of splenic vein thrombosis. ADRENAL GLANDS: Unremarkable. KIDNEYS AND URETERS: Kidneys are normal in size. No nephrolithiasis, hydronephrosis or renal mass. There is edema in the left perinephric space. The ureters are unremarkable. GASTROINTESTINAL TRACT: Again noted is gaseous distention of the cecum. The cecum currently measures 6 cm AP compared to 8 cm AP diameter on 08/29/2017. No pneumoperitoneum. ABDOMINAL WALL: Unremarkable. LYMPH NODES: Normal. VASCULAR: Abdominal aorta is normal in caliber and its major branches are widely patent. There is a left and right-sided inferior vena cava. OSSEOUS STRUCTURES: Again noted is the L5 spondylolysis with grade 1 anterolisthesis of L5 on S1. No suspicious osseous lesions. IMPRESSION: 1. No evidence of pancreatic neoplasm. 2. Acute interstitial pancreatitis associated with peripancreatic fluid that extends along the anterior renal fascia toward the pelvis, unchanged compared to 08/29/2017. 3. Persistent small left pleural effusion and trace right pleural effusion.
[2017-08-31 14:40] VITALS: BP 125/80
[2017-08-31 20:00] VITALS: BP 130/76
[2017-08-31 20:27] VITALS: BP 130/76
[2017-08-31 22:00] VITALS: BP 130/76
[2017-09-01] VITALS (8 sets, daily range): BP systolic 118–150; BP diastolic 68–90
--- NOTE | 2017-09-01 07:19 | PN- Housestaff ---
JorgePrewitt 09/01/17 0719: Subjective Follow-up For: Recurrent pancreatitis Alcohol abuse Subjective: No overnight events. Patient remained afebrile. Seen and examined this morning. Patient denied any chest pain, short of breath, nausea, vomiting, lightheadedness and dysuria. Patient reported having dry cough and abdominal pain 6/10. He is tolerating full liquid diet. Review of Systems Constitutional: Reports: no symptoms. EENTM: Reports: no symptoms. Cardiovascular: Reports: no symptoms. Respiratory: Reports: cough. Gastrointestinal: Reports: abdominal pain. Genitourinary: Reports: no symptoms. Musculoskeletal: Reports: no symptoms. Neurological/Psychological: Reports: no symptoms. Objective Last 24 Hrs of Vital Signs/I&O Vital Signs Date Time Temp Pulse Resp B/P B/P Pulse O2 O2 Flow FiO2 Mean Ox Delivery Rate 09/01 0625 90 Room Air Room Air 09/01 0600 98.6 87 20 132/82 02/08 0428 98.6 87 20 132/82 92 Room Air / 0400 98.6 87 20 132/82 /08 0200 98.6 87 20 132/82 /08 0018 98.6 87 20 150/90 93 Room Air 02/08 0000 Room Air 02/08 0000 98.2 88 20 130/76 02/07 2200 98.2 88 20 130/76 /07 2027 98.2 88 20 130/76 95 Room Air 02/07 2000 98.2 88 20 130/76 02/07 1440 98.1 77 19 125/80 95 Intake & Output / 1600 /08 0800 /08 0000 Intake Total 600 600 Output Total Balance 600 600 Intake, Oral 600 600 Physical Exam General Appearance: Alert, Oriented X3, Cooperative Skin Temp/Moisture Exam: Warm/Dry Sepsis Skin Exam (color): Normal for Ethnicity HEENT: Atraumatic, PERRLA, EOMI Neck: Supple Cardiovascular: Normal S1, Normal S2 Lungs: wheezing on left side Abdomen: Soft Neurological: Normal Speech, Strength at 5/5 X4 Ext, Normal Tone, Sensation Intact Extremities: No Edema Assessment/Plan Assessment: 61 YO M with PMH of gout, hypertension, hyperlipidemia, anxiety, alcoholism, previous history of 2 pancreatitis attacks last one was 2012 who presented with history of severe abdominal pain. patient is being followed on general medicine floor for treat of acute pancreatitis. Recurrent alcoholic pancreatitis: -Patient is tolerating full liquid diet. -Continue morphine frequency to Q4 as needed -Continue antiemetic medication as needed. -CT scan abdomen is negative for pancreatic mass. -We will follow GI recommendations. Alcohol detox: -Patient have a history of alcohol abuse. -Continue lorazepam 1 mg twice a day. -Continue thiamine supplement. History of hypertension hyperlipidemia: -Continue amlodipine and atorvastatin. -Continue aspirin History of depression/anxiety: -Continue venlafaxine. DVT Prophylaxis: Mechanical and Lovenox CODE STATUS: Full code Problem List: 1. Acute pancreatitis Pain Ratin Pain Location: Abdomen Pain Goal: Pain 4 or less Pain Plan: pain pathway Tomorrow's Labs & Rationales: cbc/bep Carol Ivan MD 09/01/17 1328: Attending MD Review Statement Attending Statement Attending MD Statement: examined this patient, discuss w/resident/PA/DIRECTOR LEARNING SERVICES, agreed w/resident/PA/DIRECTOR LEARNING SERVICES, reviewed EMR data (avail) Attending Assessment/Plan: 61M PMH HTN, HLD, depression, history of pancreatitis presenting with 2 days of worsening diffuse abdominal pain, abdominal fullness, nausea. Recently returned from an 8 day vacation to the [facility] where he indulged in food and alcohol. He has been unable to eat for the past 2 days due to pain and nausea. He denies fever, chills, headache, sore throat, chest pain, cough, diarrhea, dysuria. Today has continued abdominal pain and fullness, but he is tolerating clear liquid diet well. CT abdomen shows small left pleural effusion, significant intra-peritoneal fluid consistent with severe pancreatitis without necrosis. Plan - Continue on general medicine - Follow GI recommendations - Continue current pain regimen - Full liquid diet - Continue essential home medications - DVT PPx - Will advance diet tomorrow if condition improves
[2017-09-01 09:03] LABS: ABSOLUTE BASOPHIL COUNT 0 /CUMM (0.0-0.2); ABSOLUTE EOSINOPHIL COUNT 0.1 /CUMM (0.0-0.7); ABSOLUTE GRANULOCYTE CT 3.8 /CUMM (1.4-6.5); ABSOLUTE LYMPH COUNT 0.6 /CUMM (1.2-3.4); ABSOLUTE MONOCYTE COUNT 0.9 /CUMM (0.10-0.60); BASOPHIL % 0.3 % (0.0-2.0); EOSINOPHIL % 1.3 % (0-5); GRANULOCYTE % 70.3 % (42.2-75.2); HEMATOCRIT 34.4 % (42-52); MEAN CORPUSCULAR HGB 30.8 PG (27.0-31.0); MEAN CORPUSCULAR HGB CONC 34.1 G/DL (33.0-37.0); MEAN CORPUSCULAR VOLUME 90.5 FL (80.0-94.0); MEAN PLATELET VOLUME 7.6 FL (7.4-10.4); PLATELET COUNT 283 /CUMM (130-400); RBC DISTRIBUTION WIDTH 13.1 % (11.5-14.5); WHITE BLOOD CELL COUNT 5.4 /CUMM (4.8-10.8)
[2017-09-02 02:00] VITALS: BP 130/70
[2017-09-02 06:00] VITALS: BP 130/70
[2017-09-02 06:50] VITALS: BP 130/76
--- NOTE | 2017-09-02 07:15 | PN- Housestaff ---
JorgeBiswas 09/02/17 0714: Subjective Follow-up For: Recurrent pancreatitis Alcohol abuse Subjective: No overnight events. Patient remained afebrile overnight. Seen and examined this morning. Patient denied any chest pain, short of breath, nausea, vomiting, lightheadedness and dysuria. Patient reported having dry cough and pain in the throat. He also reported having abdominal pain 5/10. We'll advance his diet to regular today. We will observe him who is doing with regular diet and possible discharge tomorrow. Review of Systems Constitutional: Reports: no symptoms. EENTM: Reports: no symptoms. Cardiovascular: Reports: no symptoms. Respiratory: Reports: cough. Gastrointestinal: Reports: abdominal pain, bloating. Genitourinary: Reports: no symptoms. Musculoskeletal: Reports: no symptoms. Neurological/Psychological: Reports: no symptoms. Objective Last 24 Hrs of Vital Signs/I&O Vital Signs Date Time Temp Pulse Resp B/P B/P Pulse O2 O2 Flow FiO2 Mean Ox Delivery Rate 09/02 0941 91 130/76 09/02 0650 99.7 91 18 130/76 94 Room Air 09/02 0600 99.7 91 18 130/70 09/02 0200 99.0 80 18 130/70 02 2208 98.8 72 18 130/68 93 Room Air 09/01 2128 94 Room Air 09/01 1346 98.7 93 18 118/70 97 Room Air 09/01 1137 91 Room Air Room Air Intake & Output 09/02 1600 09/02 0800 09/02 0000 Intake Total 250 250 Output Total Balance 250 250 Intake, IV 10 Intake, Oral 240 250 Physical Exam General Appearance: Alert, Oriented X3, Cooperative Skin Temp/Moisture Exam: Warm/Dry Sepsis Skin Exam (color): Normal for Ethnicity HEENT: Atraumatic, PERRLA, EOMI Neck: Supple Cardiovascular: Normal S1, Normal S2 Lungs: Wheezing on left side and decreased breath sounds Abdomen: Soft, No Tenderness Neurological: Normal Speech, Strength at 5/5 X4 Ext, Normal Tone Extremities: No Edema Assessment/Plan Assessment: 61 YO M with PMH of gout, hypertension, hyperlipidemia, anxiety, alcoholism, previous history of 2 pancreatitis attacks last one was 2012 who presented with history of severe abdominal pain. patient is being followed on general medicine floor for treat of acute pancreatitis. Recurrent alcoholic pancreatitis: -Patient is on regular diet. -Continue morphine frequency to Q4 as needed -Continue antiemetic medication as needed. -CT scan abdomen is negative for pancreatic mass. -We will follow GI recommendations. Alcohol detox: -Patient have a history of alcohol abuse. -Continue lorazepam 1 mg twice a day. -Continue thiamine supplement. History of hypertension hyperlipidemia: -Continue amlodipine and atorvastatin. -Continue aspirin History of depression/anxiety: -Continue venlafaxine. DVT Prophylaxis: Mechanical and Lovenox CODE STATUS: Full code Problem List: 1. Acute pancreatitis Pain Ratin Pain Location: abdomen Pain Goal: Remain pain free Pain Plan: pain pathway Tomorrow's Labs & Rationales: cbc/bep Carol Ivan MD 09/02/17 1457: Attending MD Review Statement Attending Statement Attending MD Statement: examined this patient, discuss w/resident/PA/INTERNATIONAL SPECIALIST, agreed w/resident/PA/INTERNATIONAL SPECIALIST, reviewed EMR data (avail) Attending Assessment/Plan: 61M PMH HTN, HLD, depression, history of pancreatitis presenting with 2 days of worsening diffuse abdominal pain, abdominal fullness, nausea. Recently returned from an 8 day vacation to the [facility] where he indulged in food and alcohol. He has been unable to eat for the past 2 days due to pain and nausea. He denies fever, chills, headache, sore throat, chest pain, diarrhea, dysuria. Abdominal pain improving. Still with dry cough. Plan - Continue on general medicine - Follow GI recommendations - Continue current pain regimen - Advance to regular diet - Continue essential home medications - DVT PPx - Anticipated discharge tomorrow
[2017-09-02 09:23] LABS: ABSOLUTE BASOPHIL COUNT 0 /CUMM (0.0-0.2); ABSOLUTE EOSINOPHIL COUNT 0 /CUMM (0.0-0.7); ABSOLUTE GRANULOCYTE CT 4.6 /CUMM (1.4-6.5); ABSOLUTE LYMPH COUNT 0.7 /CUMM (1.2-3.4); BASOPHIL % 0.1 % (0.0-2.0); EOSINOPHIL % 0.6 % (0-5); GRANULOCYTE % 72.2 % (42.2-75.2); HEMATOCRIT 37.7 % (42-52); MEAN CORPUSCULAR HGB 30.5 PG (27.0-31.0); MEAN CORPUSCULAR HGB CONC 33.9 G/DL (33.0-37.0); MEAN CORPUSCULAR VOLUME 89.8 FL (80.0-94.0); MEAN PLATELET VOLUME 7.6 FL (7.4-10.4); PLATELET COUNT 336 /CUMM (130-400); RBC DISTRIBUTION WIDTH 13.5 % (11.5-14.5); WHITE BLOOD CELL COUNT 6.4 /CUMM (4.8-10.8)
[2017-09-02] MEDS ORDERED: PERCOCET 10-321 EACH PO ×2 (10:55→14:02)
[2017-09-02] MEDS ORDERED: MIRALAX17 G1 PO (10:55)
[2017-09-02] MEDS ORDERED: COUGH SYRU100 MG/5 M PO ×2 (10:55→11:36)
--- NOTE | 2017-09-02 11:00 | Patient Discharge Instructions ---
Discharge Instructions General Discharge Information You were seen/treated for: Acute pancreatitis Alcohol abuse Watch for these problems: Abdominal pain, nausea, vomiting, chills, fever, constipation, diarrhea, shortness of breath, lightheadedness and chest pain. If you experience any of these symptoms please him to ED or call your primary care physician. Special Instructions: Follow-up with your primary care physician in one week. Follow-up with your Nursing Secretary in 1 week. Diet Recommended Diet: Regular Activity Activity Self Limited: Yes Acute Coronary Syndrome Inclusion Criteria At DC or during hospital stay patient has or had the following: ACS DIAGNOSIS No Discharge Core Measures Meds if any: Prescribed or Continued at Discharge Meds if any: NOT Prescribed or Continued at Discharge Congestive Heart Failure Inclusion Criteria At DC or during hospital stay patient has or had the following: CHF DIAGNOSIS No Discharge Core Measures Meds if any: Prescribed or Continued at Discharge Meds if any: NOT Prescribed or Continued at Discharge Cerebrovascular accident Inclusion Criteria At DC or during hospital stay patient has or had the following: CVA/TIA Diagnosis No Discharge Core Measures Meds if any: Prescribed or Continued at Discharge Meds if any: NOT Prescribed or Continued at Discharge Venous thromboembolism Inclusion Criteria VTE Diagnosis No VTE Type NONE VTE Confirmed by (Test) NONE Discharge Core Measures - Per Current guidelines, there needs to be overlap - treatment for the first 5 days of Warfarin therapy. - If discharged on Warfarin prior to 5 days of - overlap therapy, the patient will need to be - assessed for post discharge needs including - *Post discharge parental anticoagulation - *Warfarin and/or parental anticoagulation education - *Follow up date to check INR post discharge At least 5 days overlap therapy as Inpatient No Meds if any: Prescribed or Continued at Discharge Note: Overlap Therapy is Warfarin and Anticoagulant Meds if any: NOT Prescribed or Continued at Discharge
[2017-09-02 14:44] VITALS: BP 120/71
[2017-09-02 22:06] VITALS: BP 114/74
[2017-09-03 06:27] VITALS: BP 124/76
[2017-09-03 09:06] VITALS: BP 124/68
[2017-09-03 11:02] LABS: ABSOLUTE BASOPHIL COUNT 0 /CUMM (0.0-0.2); ABSOLUTE EOSINOPHIL COUNT 0.1 /CUMM (0.0-0.7); ABSOLUTE GRANULOCYTE CT 5.8 /CUMM (1.4-6.5); ABSOLUTE LYMPH COUNT 0.9 /CUMM (1.2-3.4); ABSOLUTE MONOCYTE COUNT 0.9 /CUMM (0.10-0.60); BASOPHIL % 0.2 % (0.0-2.0); EOSINOPHIL % 1.1 % (0-5); GRANULOCYTE % 75.9 % (42.2-75.2); HEMATOCRIT 37.9 % (42-52); MEAN CORPUSCULAR HGB 30.8 PG (27.0-31.0); MEAN CORPUSCULAR HGB CONC 33.7 G/DL (33.0-37.0); MEAN CORPUSCULAR VOLUME 91.3 FL (80.0-94.0); MEAN PLATELET VOLUME 7.8 FL (7.4-10.4); PLATELET COUNT 400 /CUMM (130-400); RBC DISTRIBUTION WIDTH 12.9 % (11.5-14.5); RED BLOOD CELL CT 4.15 /CUMM (4.70-6.10); WHITE BLOOD CELL COUNT 7.6 /CUMM (4.8-10.8)
--- NOTE | 2017-09-04 09:57 | Discharge Summary ---
Visit Information Visit Dates Admission Date: 08/27/17 Discharge Date: 09/03/17 Hospital Course Course Attending Physician: Carol Ivan MD Primary Care Physician: Silvio Mishra MD Hospital Course: 61M PMH HTN, HLD, depression, history of pancreatitis presenting with 2 days of worsening diffuse abdominal pain, abdominal fullness, nausea. Recently returned from an 8 day vacation to the [facility] where he indulged in food and alcohol. He has been unable to eat for the past 2 days due to pain and nausea. He denies fever, chills, headache, sore throat, chest pain, diarrhea, dysuria. ED course: Vitals: Labs: Acute alcoholic pancreatitis: -Patient is on regular diet. -Continue morphine frequency to Q4 as needed -Continue antiemetic medication as needed. -CT scan abdomen is negative for pancreatic mass. -We will follow GI recommendations. Alcohol detox: -Patient have a history of alcohol abuse. -Continue lorazepam 1 mg twice a day. -Continue thiamine supplement. History of hypertension hyperlipidemia: -Continue amlodipine and atorvastatin. -Continue aspirin History of depression/anxiety: -Continue venlafaxine. DVT Prophylaxis: Mechanical and Lovenox CODE STATUS: Full code Allergies: Coded Allergies: NO KNOWN ALLERGIES (02/10/12) Disposition Summary Disposition Principal Diagnosis: Acute alcoholic pancreatitis Alcohol detox Additional Diagnosis: HTN HLD Discharge Disposition: home or self care Discharge Instructions General Discharge Information Code Status: Full Code Patient's Diet: Regular diet Patient's Activity: Self limited Follow-Up Instructions/Appts: Follow-up with your primary care physician in one week. Follow-up with your Supervisor [employer] in 1 week. Medications at Discharge Discharge Medications: Continue taking these medications: Amlodipine Besylate (Amlodipine Besylate) 5 MG TABLET 1 Tablet ORAL DAILY Qty = 30 Comments: Last Taken:09/03/17 Time:0900 AM Zolpidem Tartrate (Zolpidem Tartrate) 10 MG TABLET 1 Tablet ORAL Every night as needed Qty = 30 Comments: Last Taken:09/02/17 Time:930PM Atorvastatin Calcium (Atorvastatin Calcium) 10 MG TABLET 1 Tablet ORAL DAILY Qty = 15 Comments: Last Taken: Time:1754 PM Venlafaxine HCl (Venlafaxine HCl ER) 75 MG CAP.ER.24H 1 Capsule ORAL DAILY Qty = 30 Comments: Last Taken:09/03/17 Time:0900AM Probenecid (Probenecid) 500 MG TABLET Qty = 30 Comments: Last Taken:09/03/17 Time:0900 AM Aspirin (Aspirin*) 81 MG TAB.CHEW 1 Tablet ORAL DAILY Comments: Last Taken:09/03/17 Time:0900 AM Alprazolam (Alprazolam) 0.5 MG TABLET 1 Tablet ORAL DAILY NEEDED Comments: Last Taken:09/03/17 Time:0900 Start taking the following new medications: Guaifenesin (Cough Syrup) 100 MG/5 ML LIQUID 10 Milliliters ORAL EVERY SIX HOURS NEEDED as needed for cough Qty = 1 No Refills Instructions: . Comments: Last Taken:09/02/17 Time:0930 AM Oxycodone HCl/Acetaminophen (Percocet 10-325 MG Tablet) 10 MG-325 MG TABLET 1 Tablet ORAL EVERY 4 HOURS NEEDED as needed for Severe pain Qty = 15 No Refills Instructions: . Comments: Last Taken:09/03/17 Time:0900 AM Polyethylene Glycol 3350 (Miralax) 17 GRAM POWD.PACK 1 Packet ORAL DAILY as needed for Constipation Qty = 2 No Refills Instructions: dissolve in water Comments: Last Taken:08/29/17 Time:1130 AM
== END 2017-09-03 11:40 | DRG 440 ==
LOC: ERH 16:43 → 2NA 21:35 → ERHI 21:35 → ENRESERV 23:25 → 2NA 08-28 00:39 → ENPENDDIS 09-03 11:11 → 2NA 09-03 11:40
PROVIDERS: Emergency Medicine; Student in an Organized Health Care Education/Training Program
DX: K85.90 Acute pancreatitis without necrosis or infection, unspecified (principal); E83.51 Hypocalcemia; I10 Essential (primary) hypertension; R50.9 Fever, unspecified; D72.829 Elevated white blood cell count, unspecified; F10.10 Alcohol abuse, uncomplicated; E78.5 Hyperlipidemia, unspecified; F41.9 Anxiety disorder, unspecified; M10.9 Gout, unspecified
CPT/HCPCS: 2NASP; 82787; ERO; 36415; 71045; 74177; 80307; 82436; 87040; 87804; 87804-59; 93005; 93010; 96361; 96374; 96375; J0131; J1200; J1650; J1885; J2405; J3250; J3490; J7120